=== PATIENT | male | born 1965 | race Caucasian/White ===

== ENCOUNTER 2018-08-25 09:53 | Emergency (ER) | payer OTHER, SELFPAY ==
[~2018-08-25] VITALS: Ht 167.6 cm; Wt 58.1 kg
[~2018-08-25 09:53] MED LIST: Acetaminophen-1 EAC1 PO; BACL10 PO; BUTALB-ACETAMI1 EACH PO; CRUTCH3 USE; DICL25ER PO; DULO30 PO; Diclofenac Pota50 MG PO; FLUC150A PO; GABA300 PO; HYDACE5325 PO; HYDR25SUP PR; IBUP400 PO; Ibuprofen Ib200 MG PO; KETO15TC TOP; LEVFLO500 PO; LORA1 PO; LOSA50 PO; LOSARTAN POTAS100 MG PO; METR500 PO; Milk Thistle175 M1 PO; Multivitamin1 EAC1 PO; NAPR500 PO; Naprosyn500 MG PO; Norco 10-325 T1 EACH PO; OMEP20ER PO; OMEP40CA12 PO; OXYC5 PO; PANT20 PO; PANT40 PO; PARO10 PO; Percocet 5-3251 EACH PO; Prednisone20 MG PO; Prozac20 MG PO; SULTRIDS PO; TIZANIDINE HCL2 MG PO; TOPI25 PO; TRAZ100 PO; Zofran Odt8 MG SL
[2018-08-25 11:13] LABS: Anion Gap 6 mmol/L (6-16); Blood Urea Nitrogen 20 mg/dL (8-24); Bun/Creatinine Ratio 25.5 (12.0-20.0); CO2, Blood 28 mmol/L (21-32); Calcium, Blood 8.8 mg/dL (8.5-10.1); Chloride, Blood 103 mmol/L (98-108); Creatinine, Blood 0.78 mg/dL (0.60-1.20); Glomerular Filtration Rate >60 (60-); Glucose, Blood 113 mg/dL (70-99); Magnesium, Blood 2.3 mg/dL (1.6-2.4); Potassium, Blood 3.9 mmol/L (3.5-5.5); Sodium, Blood 137 mmol/L (136-145)
[2018-08-25 11:34] LABS: Influenza A Negative (NEGATIVE); Influenza B Negative (NEGATIVE)
[2018-08-25] MEDS ORDERED: Neurontin 300300 MG PO (12:43)
== END 2018-08-25 13:00 | disposition home or self-care (01) ==
LOC: ER 09:53
PROVIDERS: Physician Assistant
DX: R25.2 Cramp and spasm (principal); Z91.030 Bee allergy status; Z91.038 Other insect allergy status; Z88.8 Allergy status to other drugs, medicaments and biological substances; Z79.899 Other long term (current) drug therapy; F17.210 Nicotine dependence, cigarettes, uncomplicated
CPT/HCPCS: 80048; 83735; 87804; 96374; 99283-25; J1885; J7120

== ENCOUNTER 2018-12-24 05:41 | Day surgery (SDC) | payer OTHER ==
[~2018-12-24] VITALS: Ht 142.2 cm; Wt 65.9 kg
[~2018-12-24 05:41] MED LIST changes: +B-121000 MC2 PO; +CLOP75; +EPIPEN0.3 MG/0.3 INJ; +FOLBIC RF TABL1 EACH; +Neurontin 300300 MG PO; +OXYC10ER PO
--- NOTE | 2018-12-24 09:12 | NUR ---
PT TO RECOVERY ROOM APPROX 10 MINUTES AGO WITH NOTED SMALL HEMATOMA TO GROIN, APPROX SIZE OF [place]. PRESSURE HELD WITH RESOLUTION AND THEN RETURN OF HEMATOMA. TECH BACK IN AT THIS TIME TO CONTINUE TO HOLD PRESSURE. MD IN TO SEE PATIENT PREVIOUSLY. LEFT LEG CMS INTACT. PPP.
--- NOTE | 2018-12-24 09:25 | NUR ---
GROIN NOW REMAINS SOFT, NO HEMATOMA FELT. CONTINUE CLOSE MONITORING. PT LETHARGIC.
--- NOTE | 2018-12-24 11:15 | NUR ---
PT CONTINUES TO SLEEP IF LEFT UNDISTURBED. LEFT GROIN REMAINS SOFT. LEGS PWD. CAP REFILL BRISK.
--- NOTE | 2018-12-24 12:31 | NUR ---
APPROX 30 MINUTES AGO PT UP TO BATHROOM (OK PER ORDERS) WITH CG,RN. PT FOUND TO HAVE GOLF BALL SIZE HEMATOMA TO LEFT GROIN SITE AFTER AMBULATION. CG HEL PRESSURE TO SITE UNTIL HEMATOMA REDUCED AND SOFT. PT CURRENTLY RESTING IN BED IN LOW BRAR'S POSITION. AWAITING FEEDBACK FROM .
--- NOTE | 2018-12-24 13:45 | NUR ---
SUMMARY: MONITORED GROIN CLOSELY - NO FURTHER SIGNS OF BLEEDING. PT AMBULATED IN ROOM, GROIN REMAINED SOFT. LEGS PWD. PT DRESSED SELF AT BEDSIDE. GROIN REMAINED SOFT. CMS INTACT. PPP. REVIEWED DISCHARGE INSTRUCTIONS WITH PATIENT WHO VERBALIZED UNDERSTANDING OF ALL INSTRUCTIONS GIVEN. PT AGREES WITH PLAN TO DC HOME. IV D/C TIP INTACT. DC HOME VIA WHEELCHAIR WITH FAMILY TO DRIVE HIM. NO FURTHER ISSUES WITH GROIN UPON DISCHARGE. REMAINS STABLE.
[2018-12-25] MEDS ORDERED: Percocet 5-3251 EACH PO (14:07)
== END 2018-12-24 13:40 | disposition home or self-care (01) ==
LOC: MHTC 05:41
DX: I73.9 Peripheral vascular disease, unspecified (principal); Z88.8 Allergy status to other drugs, medicaments and biological substances; Z91.030 Bee allergy status; Z79.899 Other long term (current) drug therapy
CPT/HCPCS: 99152; 99153; C1714; C1725; C1760; C1769; C1884; C1887; C1894; C2623; J1644; J2250; J3010; J7030; Q9967

== ENCOUNTER 2018-12-25 11:17 | Emergency (ER) | payer OTHER ==
[~2018-12-25] VITALS: Ht 167.6 cm; Wt 65.8 kg
[2018-12-25 12:40] LABS: BASOPHILS ABSOLUTE AUTO 0.08 K/mm3 (0.00-0.23); BASOPHILS PERCENT AUTO 1 % (0-2); EOSINOPHILS ABSOLUTE AUTO 0.35 K/mm3 (0.00-0.68); EOSINOPHILS PERCENT AUTO 3 % (0-6); Hematocrit 42.6 % (37.0-53.0); Hemoglobin 14.2 g/dL (13.5-17.5); IMMATURE GRAN ABSOLUTE AUTO 0.04 K/mm3 (0.00-0.10); IMMATURE GRAN PERCENT AUTO 0 % (0-1); LYMPHOCYTES ABSOLUTE AUTO 3.45 K/mm3 (0.84-5.20); LYMPHOCYTES PERCENT AUTO 33 % (21-46); MONOCYTES ABSOLUTE AUTO 0.99 K/mm3 (0.16-1.47); MONOCYTES PERCENT AUTO 9 % (4-13); Mean Corpuscular HGB 32.5 pg (26.0-34.0); Mean Corpuscular HGB Conc 33.3 g/dL (31.5-36.5); Mean Corpuscular Volume 98 fL (80-100); Mean Platelet Volume 10.3 fL (9.1-12.4); NEUTROPHILS ABSOLUTE AUTO 5.62 K/mm3 (1.96-9.15); NEUTROPHILS PERCENT AUTO 53 % (41-73); Platelet Count 220 K/mm3 (150-400); RDW Coefficient Variation 13.1 % (11.7-14.2); RDW Standard Deviation 46.8 fL (35.1-46.3); Red Blood Cell Count 4.37 M/mm3 (4.30-5.90); White Blood Cell Count 10.53 K/mm3 (4.00-11.30)
[2018-12-25 13:06] LABS: Alanine Aminotransfer (ALT/SGP 20 U/L (12-78); Albumin, Blood 3.5 g/dL (3.4-5.0); Albumin/Globulin Ratio 0.9 (0.8-1.8); Alk Phos 55 U/L (50-136); Anion Gap 6 mmol/L (6-16); Aspartate Aminotrans (AST/SGOT 13 U/L (12-37); Bilirubin, Total 0.4 mg/dL (0.1-1.0); Blood Urea Nitrogen 14 mg/dL (8-24); CO2, Blood 27 mmol/L (21-32); Calcium, Blood 8.4 mg/dL (8.5-10.1); Chloride, Blood 107 mmol/L (98-108); Creatinine, Blood 0.78 mg/dL (0.60-1.20); Globulin, Blood 3.8 g/dL (2.2-4.0); Glomerular Filtration Rate >60 (60-); Glucose, Blood 77 mg/dL (70-99); Potassium, Blood 3.7 mmol/L (3.5-5.5); Sodium, Blood 140 mmol/L (136-145); Total Protein, Blood 7.3 g/dL (6.4-8.2)
[2018-12-25 13:28] LABS: Source, Urine Clean Catch
[2018-12-25 13:32] LABS: Appearance, Urine Clear (Clear); Bilirubin, Urine Neg (Neg); Blood, Urine Neg (Neg); Color, Urine Yellow (P-Yellow); Glucose Qualitative, Urine Neg (Neg); Ketones, Urine Neg (Neg); Leukocyte Esterase, Urine Neg (Neg); Nitrite, Urine Neg (Neg); Protein, Urine Neg (Neg); Urobilinogen, Urine NORM (Normal)
[2018-12-25] MEDS ORDERED: Percocet 5-3251 EACH PO (14:07)
== END 2018-12-25 14:19 | disposition home or self-care (01) ==
LOC: ER 11:17
PROVIDERS: Emergency Medicine
DX: R10.9 Unspecified abdominal pain (principal); M79.604 Pain in right leg; F17.210 Nicotine dependence, cigarettes, uncomplicated
CPT/HCPCS: 36415; 74177; 80053; 81003; 85025; 96361; 96374-59; 99284-25; J3010; J7030; Q9967

== ENCOUNTER 2019-04-07 19:15 | Emergency (ER) | payer OTHER ==
[~2019-04-07] VITALS: Ht 167.6 cm; Wt 64.4 kg
== END 2019-04-07 20:37 | disposition home or self-care (01) ==
LOC: ER 19:15
DX: T63.441A Toxic effect of venom of bees, accidental (unintentional), initial encounter (principal); Z91.030 Bee allergy status; Z88.8 Allergy status to other drugs, medicaments and biological substances; Z87.891 Personal history of nicotine dependence
CPT/HCPCS: 99281; J1100

== ENCOUNTER 2019-05-08 14:37 | Emergency (ER) | payer OTHER ==
[~2019-05-08] VITALS: Ht 167.6 cm; Wt 65.8 kg
[2019-05-08 15:46] LABS: Source, Urine Clean Catch
[2019-05-08 15:48] LABS: BASOPHILS ABSOLUTE AUTO 0.02 K/mm3 (0.00-0.23); BASOPHILS PERCENT AUTO 0 % (0-2); EOSINOPHILS PERCENT AUTO 2 % (0-6); Hematocrit 47.5 % (37.0-53.0); Hemoglobin 16.1 g/dL (13.5-17.5); IMMATURE GRAN ABSOLUTE AUTO 0.01 K/mm3 (0.00-0.10); IMMATURE GRAN PERCENT AUTO 0 % (0-1); LYMPHOCYTES PERCENT AUTO 39 % (21-46); MONOCYTES PERCENT AUTO 8 % (4-13); Mean Corpuscular HGB 31.9 pg (26.0-34.0); Mean Corpuscular HGB Conc 33.9 g/dL (31.5-36.5); Mean Corpuscular Volume 94 fL (80-100); Mean Platelet Volume 10.7 fL (9.1-12.4); NEUTROPHILS ABSOLUTE AUTO 3.18 K/mm3 (1.96-9.15); NEUTROPHILS PERCENT AUTO 51 % (41-73); Platelet Count 155 K/mm3 (150-400); RDW Coefficient Variation 12.7 % (11.7-14.2); RDW Standard Deviation 44.4 fL (35.1-46.3); Red Blood Cell Count 5.04 M/mm3 (4.30-5.90); White Blood Cell Count 6.21 K/mm3 (4.00-11.30)
[2019-05-08 15:51] LABS: Bilirubin, Urine Neg (Neg); Blood, Urine Neg (Neg); Glucose Qualitative, Urine Neg (Neg); Ketones, Urine Neg (Neg); Leukocyte Esterase, Urine Neg (Neg); Nitrite, Urine Neg (Neg); Protein, Urine Neg (Neg); Urobilinogen, Urine NORM (Normal)
[2019-05-08 15:58] LABS: Appearance, Urine Clear (Clear); Color, Urine Yellow (P-Yellow)
[2019-05-08 16:21] LABS: Alanine Aminotransfer (ALT/SGP 34 U/L (12-78); Albumin, Blood 3.7 g/dL (3.4-5.0); Albumin/Globulin Ratio 0.9 (0.8-1.8); Alk Phos 59 U/L (50-136); Anion Gap 6 mmol/L (6-16); Aspartate Aminotrans (AST/SGOT 28 U/L (12-37); Bilirubin, Total 0.3 mg/dL (0.1-1.0); Blood Urea Nitrogen 17 mg/dL (8-24); Bun/Creatinine Ratio 23.2 (12.0-20.0); CO2, Blood 28 mmol/L (21-32); Calcium, Blood 8.7 mg/dL (8.5-10.1); Chloride, Blood 105 mmol/L (98-108); Creatinine, Blood 0.73 mg/dL (0.60-1.20); Globulin, Blood 4.1 g/dL (2.2-4.0); Glomerular Filtration Rate >60 (60-); Glucose, Blood 158 mg/dL (70-99); Potassium, Blood 3.8 mmol/L (3.5-5.5); Sodium, Blood 139 mmol/L (136-145); Total Protein, Blood 7.8 g/dL (6.4-8.2)
[2019-05-08 16:27] LABS: Troponin I <0.015 ng/mL (0.000-0.040)
[2019-05-08] MEDS ORDERED: Zithromax250 MG PO (16:49)
== END 2019-05-08 16:54 | disposition home or self-care (01) ==
LOC: ER 14:37
PROVIDERS: Physician Assistant
DX: J18.9 Pneumonia, unspecified organism (principal); G89.29 Other chronic pain; M54.9 Dorsalgia, unspecified; I51.7 Cardiomegaly; F17.210 Nicotine dependence, cigarettes, uncomplicated; Z91.030 Bee allergy status; Z88.8 Allergy status to other drugs, medicaments and biological substances; Z86.19 Personal history of other infectious and parasitic diseases
CPT/HCPCS: 36415; 71046; 80053; 81003; 83690; 83880; 84484; 85025; 93005; 93010; 96365; 99284-25; J0456; J0696; J7030; J7050

== ENCOUNTER 2019-05-26 19:53 | Emergency (ER) | payer OTHER ==
[~2019-05-26] VITALS: Ht 167.6 cm; Wt 65.8 kg
[~2019-05-26 19:53] MED LIST changes: +Zithromax250 MG PO
[2019-05-26] MEDS ORDERED: LOSA25 PO (20:02)
[2019-05-26] MEDS ORDERED: [UNRECOGNIZED DRUG - OTHER] (20:03)
[2019-05-26] MEDS ORDERED: TRAZ100 PO (20:03)
[2019-05-26 20:43] LABS: BASOPHILS ABSOLUTE AUTO 0.05 K/mm3 (0.00-0.23); BASOPHILS PERCENT AUTO 0 % (0-2); EOSINOPHILS ABSOLUTE AUTO 0.14 K/mm3 (0.00-0.68); EOSINOPHILS PERCENT AUTO 1 % (0-6); Hematocrit 45.9 % (37.0-53.0); Hemoglobin 15.7 g/dL (13.5-17.5); IMMATURE GRAN ABSOLUTE AUTO 0.03 K/mm3 (0.00-0.10); IMMATURE GRAN PERCENT AUTO 0 % (0-1); LYMPHOCYTES ABSOLUTE AUTO 3.98 K/mm3 (0.84-5.20); LYMPHOCYTES PERCENT AUTO 32 % (21-46); MONOCYTES ABSOLUTE AUTO 0.76 K/mm3 (0.16-1.47); MONOCYTES PERCENT AUTO 6 % (4-13); Mean Corpuscular HGB 32.3 pg (26.0-34.0); Mean Corpuscular HGB Conc 34.2 g/dL (31.5-36.5); Mean Corpuscular Volume 94 fL (80-100); Mean Platelet Volume 10.6 fL (9.1-12.4); NEUTROPHILS ABSOLUTE AUTO 7.58 K/mm3 (1.96-9.15); NEUTROPHILS PERCENT AUTO 61 % (41-73); Platelet Count 201 K/mm3 (150-400); RDW Coefficient Variation 12.6 % (11.7-14.2); RDW Standard Deviation 43.8 fL (35.1-46.3); Red Blood Cell Count 4.86 M/mm3 (4.30-5.90); White Blood Cell Count 12.54 K/mm3 (4.00-11.30)
[2019-05-26 21:06] LABS: Alanine Aminotransfer (ALT/SGP 29 U/L (12-78); Albumin/Globulin Ratio 1.1 (0.8-1.8); Alk Phos 56 U/L (50-136); Anion Gap 3 mmol/L (6-16); Aspartate Aminotrans (AST/SGOT 23 U/L (12-37); Bilirubin, Total 0.5 mg/dL (0.1-1.0); Blood Urea Nitrogen 15 mg/dL (8-24); Bun/Creatinine Ratio 20.2 (12.0-20.0); CO2, Blood 29 mmol/L (21-32); Calcium, Blood 8.9 mg/dL (8.5-10.1); Chloride, Blood 106 mmol/L (98-108); Creatinine, Blood 0.74 mg/dL (0.60-1.20); Globulin, Blood 3.6 g/dL (2.2-4.0); Glomerular Filtration Rate >60 (60-); Glucose, Blood 83 mg/dL (70-99); Potassium, Blood 4.2 mmol/L (3.5-5.5); Sodium, Blood 138 mmol/L (136-145); Total Protein, Blood 7.6 g/dL (6.4-8.2); Troponin I <0.015 ng/mL (0.000-0.040)
== END 2019-05-26 23:34 | disposition home or self-care (01) ==
LOC: ER 19:53
PROVIDERS: Physician Assistant
DX: R07.9 Chest pain, unspecified (principal); F17.210 Nicotine dependence, cigarettes, uncomplicated; Z91.030 Bee allergy status; Z88.8 Allergy status to other drugs, medicaments and biological substances; Z79.899 Other long term (current) drug therapy
CPT/HCPCS: 36415; 71046; 80053; 84484; 85025; 93005; 93010; 96374; 99285-25; J1885

== ENCOUNTER 2020-02-17 06:41 | Day surgery (SDC) | payer OTHER ==
[~2020-02-17] VITALS: Ht 167.6 cm; Wt 65.0 kg
[~2020-02-17 06:41] MED LIST changes: +CLOP75 PO; +EPIPEN0.3 MG/0.3 IM; +LOSA25 PO; +TOPI25C PO; +[UNRECOGNIZED DRUG - OTHER]
--- NOTE | 2020-02-17 11:47 | NUR ---
PT R FEMORAL ARTERY ACCESS HAS NO SIGN OF BLEEDING, OOZING OR HEMATOMA. PT AOX4. DENIES PAIN. VSS. PLAN TO DC PT AT 1215. WILL CONTINUE TO MONITOR
--- NOTE | 2020-02-17 12:12 | NUR ---
PT AMBULATED TO RESTROOM AND DRESSED SELF WITH NO COMPLICATIONS. PT DENIES ANY PAIN. NO OOZING, BLEEDING OR HEMATOMA NOTED AT SITE. VSS. PT AOX4 AND IS ABLE TO SPEAK IN FULL SENTENCES AND RECALL INFORMATION. IV DCD WITH CATH INTACT. PT STATES HIS UNDERSTANDING OF SITE CARE AND DISCHARGE INSTRUCTIONS. PT TAKEN VIA WHEELCHAIR TO EXIT WHERE WAS WAITING WITH VEHICLE.
== END 2020-02-17 12:15 | disposition home or self-care (01) ==
LOC: MHTC 06:41
DX: I70.212 Atherosclerosis of native arteries of extremities with intermittent claudication, left leg (principal); Z88.8 Allergy status to other drugs, medicaments and biological substances; Z91.030 Bee allergy status; Z91.038 Other insect allergy status
CPT/HCPCS: 37224; 37228; 75716; 75774; 85347; 99152; 99153; C1725; C1757; C1760; C1769; C1887; C1894; J1644; J2250; J3010; J7030; Q9967

== ENCOUNTER 2020-03-16 06:15 | Day surgery (SDC) | payer OTHER ==
[~2020-03-16] VITALS: Ht 167.6 cm; Wt 63.0 kg
[~2020-03-16 06:15] MED LIST changes: +CENTRUM SILVER1 EAC2 PO
--- NOTE | 2020-03-16 10:50 | NUR ---
PT TO RECOVERY POST PROCEDURE. PT IS AWAKE AND ORIENTED, REPORTS L GROIN DISCOMFORT 10/10, ACHEY IN CHARACTER. MONITOR SB 50'S, B/P 141/70, AFEBRILE, SPO2 97% RA. L GROIN SLIGHTLY SWOLLEEN, BUT SOFT WITHOUT EVIDENCE OF HEMATOMA, TEGADERM DRSG INTACT; BLE 2+ PULSES. DR ARREDONDO HERE TO EVALUATE PT, ORDERS RECEIVED.
--- NOTE | 2020-03-16 11:00 | NUR ---
PT RECEIVED 25 MCG IV FENTANYL FOR L GROIN DISCOMFORT-ASSESSMENT REMAINS UNCHANGED.
--- NOTE | 2020-03-16 11:35 | NUR ---
PT REPORTS HE IS COMFORTABLE AFTER IV FENTANYL, L GROIN DISCOMFORT 11/03.
[2020-03-16] MEDS ORDERED: CILO100 PO (11:45)
--- NOTE | 2020-03-16 12:05 | NUR ---
PT EATING LUNCH WITHOUT ISSUE, AT BEDSIDE ATTENTIVE.
--- NOTE | 2020-03-16 13:20 | NUR ---
PT GILSON RAISED WITHOUT ISSUE, Tyra MERCER REMIANS UNCHANGED. PT AMB IN RECOVERY ROOM AND NOYOLA WITHOUT ISSUE, SITE UNCHANGED.
--- NOTE | 2020-03-16 13:27 | NUR ---
PT DRESSED SELF WITHOUT ISSUE, SITE UNCHANGED; IV REMOVED-CANNULA INTACT. PT AND RECEIVED DISCHARGE INSTRUCTIONS, MED LIST AND AFTER CARE INSTURCTIONS; VERBALIZED GOOD UNDERSTANDING. PT LEFT FACILITY VIA W/C, CONDITION STABLE.
== END 2020-03-16 13:27 | disposition home or self-care (01) ==
LOC: MHTC 06:15
DX: I70.213 Atherosclerosis of native arteries of extremities with intermittent claudication, bilateral legs (principal); I10 Essential (primary) hypertension; F32.9 Major depressive disorder, single episode, unspecified; G89.29 Other chronic pain; M54.5 Low back pain; Z87.891 Personal history of nicotine dependence; Z95.828 Presence of other vascular implants and grafts; Z88.8 Allergy status to other drugs, medicaments and biological substances; Z91.030 Bee allergy status; Z79.899 Other long term (current) drug therapy
CPT/HCPCS: 37230; 37232; 75716; 75774; 99152; 99153; A9270-GY; C1725; C1757; C1760; C1769; C1874; C1887; C1894; C2623; C9764; J1644; J2250; J3010; J7030; Q9967

== ENCOUNTER 2020-07-20 10:16 | Emergency (ER) | payer OTHER ==
[~2020-07-20] VITALS: Ht 167.6 cm; Wt 61.2 kg
[~2020-07-20 10:16] MED LIST changes: +CILO100 PO
== END 2020-07-20 15:13 | disposition left against medical advice (07) ==
LOC: ER 10:16
DX: M54.5 Low back pain (principal); Z53.21 Procedure and treatment not carried out due to patient leaving prior to being seen by health care provider; Z79.02 Long term (current) use of antithrombotics/antiplatelets; Z79.899 Other long term (current) drug therapy
CPT/HCPCS: 99282

== ENCOUNTER 2020-08-03 12:03 | Emergency (ER) | payer OTHER ==
[~2020-08-03] VITALS: Ht 167.6 cm; Wt 61.2 kg
== END 2020-08-03 13:45 | disposition home or self-care (01) ==
LOC: ER 12:03
DX: S39.012A Strain of muscle, fascia and tendon of lower back, initial encounter (principal); S70.02XA Contusion of left hip, initial encounter; Z79.02 Long term (current) use of antithrombotics/antiplatelets; Z79.899 Other long term (current) drug therapy; Z91.030 Bee allergy status; Z88.8 Allergy status to other drugs, medicaments and biological substances; Y04.8XXA Assault by other bodily force, initial encounter
CPT/HCPCS: 72100; 73502; 99283-25

== ENCOUNTER 2020-10-21 06:47 | Day surgery (SDC) | payer OTHER, SELFPAY ==
[~2020-10-21] VITALS: Ht 167.6 cm; Wt 56.0 kg
[~2020-10-21 06:47] MED LIST changes: +ATOR20 PO
[2020-10-21] MEDS ORDERED: CATAPRES0.2 M1 (07:08)
--- NOTE | 2020-10-21 07:40 | NUR ---
10/21/20 0740 Marisa Thomas 1 try right hanf valve 2 try right upper arm valve
== END 2020-10-21 09:20 | disposition home or self-care (01) ==
LOC: ORSCSDS 06:47
PROVIDERS: Internal Medicine Gastroenterology
PROC: 0DBL8ZX Excision of Transverse Colon, Via Natural or Artificial Opening Endoscopic, Diagnostic (ICD-10-PCS; principal; 2020-10-21 08:00)
PROC: 0DBE8ZX Excision of Large Intestine, Via Natural or Artificial Opening Endoscopic, Diagnostic (ICD-10-PCS; principal; 2020-10-21 08:00)
PROC: 0DB68ZX Excision of Stomach, Via Natural or Artificial Opening Endoscopic, Diagnostic (ICD-10-PCS; principal; 2020-10-21 08:00)
PROC: 0DB98ZX Excision of Duodenum, Via Natural or Artificial Opening Endoscopic, Diagnostic (ICD-10-PCS; principal; 2020-10-21 08:00)
DX: R19.7 Diarrhea, unspecified (principal); K52.832 Lymphocytic colitis; D12.3 Benign neoplasm of transverse colon; K64.4 Residual hemorrhoidal skin tags; I10 Essential (primary) hypertension; K74.60 Unspecified cirrhosis of liver; F17.210 Nicotine dependence, cigarettes, uncomplicated; J44.9 Chronic obstructive pulmonary disease, unspecified
CPT/HCPCS: 88305; 88313; 88342; J0330; J0461; J2405; J2704; J7120

== ENCOUNTER 2020-10-27 05:57 | Day surgery (SDC) | payer OTHER, SELFPAY ==
[~2020-10-27] VITALS: Ht 167.6 cm; Wt 57.0 kg
[~2020-10-27 05:57] MED LIST changes: +CATAPRES0.2 M1
[2020-10-27 06:37] LABS: BASOPHILS ABSOLUTE AUTO 0.08 K/mm3 (0.00-0.23); BASOPHILS PERCENT AUTO 1 % (0-2); EOSINOPHILS ABSOLUTE AUTO 0.12 K/mm3 (0.00-0.68); EOSINOPHILS PERCENT AUTO 1 % (0-6); Hematocrit 41.9 % (37.0-53.0); Hemoglobin 14.1 g/dL (13.5-17.5); IMMATURE GRAN ABSOLUTE AUTO 0.04 K/mm3 (0.00-0.10); IMMATURE GRAN PERCENT AUTO 0 % (0-1); LYMPHOCYTES ABSOLUTE AUTO 2.48 K/mm3 (0.84-5.20); LYMPHOCYTES PERCENT AUTO 19 % (21-46); MONOCYTES ABSOLUTE AUTO 1.07 K/mm3 (0.16-1.47); MONOCYTES PERCENT AUTO 8 % (4-13); Mean Corpuscular HGB 32.2 pg (26.0-34.0); Mean Corpuscular HGB Conc 33.7 g/dL (31.5-36.5); Mean Corpuscular Volume 96 fL (80-100); NEUTROPHILS ABSOLUTE AUTO 9.17 K/mm3 (1.96-9.15); NEUTROPHILS PERCENT AUTO 71 % (41-73); Platelet Count 223 K/mm3 (150-400); RDW Coefficient Variation 13.6 % (11.7-14.2); RDW Standard Deviation 48.3 fL (35.1-46.3); Red Blood Cell Count 4.38 M/mm3 (4.30-5.90); White Blood Cell Count 12.96 K/mm3 (4.00-11.30)
[2020-10-27 06:50] LABS: Anion Gap 3 mmol/L (6-16); Blood Urea Nitrogen 20 mg/dL (8-24); Bun/Creatinine Ratio 24.3 (12.0-20.0); CO2, Blood 27 mmol/L (21-32); Calcium, Blood 8.7 mg/dL (8.5-10.1); Chloride, Blood 109 mmol/L (98-108); Creatinine, Blood 0.82 mg/dL (0.60-1.20); Glomerular Filtration Rate >60 (60-); Glucose, Blood 97 mg/dL (70-99); Potassium, Blood 4.1 mmol/L (3.5-5.5); Sodium, Blood 139 mmol/L (136-145)
--- NOTE | 2020-10-27 11:14 | NUR ---
PT DRESSED, IV DC'D INTACT, PT CHOOSES TO DC AND AMB OUT ON OWN WITH PRESENT AND DRIVING PT HOME. PT IS STABLE ON FEET, R GROIN SITE STABLE
== END 2020-10-27 11:29 | disposition home or self-care (01) ==
LOC: MHTC 05:57
PROVIDERS: Radiology Diagnostic Radiology
DX: I70.213 Atherosclerosis of native arteries of extremities with intermittent claudication, bilateral legs (principal); I10 Essential (primary) hypertension; E78.5 Hyperlipidemia, unspecified; K21.9 Gastro-esophageal reflux disease without esophagitis; K92.1 Melena; R63.4 Abnormal weight loss; M54.5 Low back pain; G89.29 Other chronic pain; Z87.891 Personal history of nicotine dependence; Z79.02 Long term (current) use of antithrombotics/antiplatelets; Z68.21 Body mass index [BMI] 21.0-21.9, adult
CPT/HCPCS: 37220; 37222; 75716; 75774; 80048; 85025; 99152; 99153; A9270; C1725; C1760; C1769; C1887; C1894; J1644; J2250; J3010; J7030; Q9967

== ENCOUNTER 2020-11-18 10:36 | Day surgery (SDC) | payer OTHER, SELFPAY ==
[~2020-11-18] VITALS: Ht 167.6 cm; Wt 57.0 kg
[2020-11-18] MEDS ORDERED: CLON.1 PO (12:26)
[2020-11-18] MEDS ORDERED: LOSA50 PO (12:28)
[2020-11-18] MEDS ORDERED: Norco 5-325 Ta1 EACH PO (16:34)
--- NOTE | 2020-11-18 17:31 | NUR ---
PT GETTING DRESSED PER SELF. GROIN SITE STABLE
--- NOTE | 2020-11-18 17:42 | NUR ---
PT DRESSED, GROIN SITE STABLE. DISCHARGE GONE OVER WITH PT, VERBALIZES UNDERSTANDING. PT TO PRIVATE VEHICLE PER W/C WITH ONE STAFF.
== END 2020-11-18 23:32 | disposition home or self-care (01) ==
LOC: MHTC 10:36
DX: I70.213 Atherosclerosis of native arteries of extremities with intermittent claudication, bilateral legs (principal); I10 Essential (primary) hypertension; E78.5 Hyperlipidemia, unspecified; K21.9 Gastro-esophageal reflux disease without esophagitis; Z88.8 Allergy status to other drugs, medicaments and biological substances; Z86.19 Personal history of other infectious and parasitic diseases; Z86.14 Personal history of Methicillin resistant Staphylococcus aureus infection; Z87.891 Personal history of nicotine dependence; Z91.030 Bee allergy status; Z79.02 Long term (current) use of antithrombotics/antiplatelets; R63.4 Abnormal weight loss; Z68.21 Body mass index [BMI] 21.0-21.9, adult
CPT/HCPCS: 37228; 75716; 75774; 76937; 85347; 93005; 93010; 99152; 99153; C1725; C1757; C1760; C1769; C1887; C1894; C9772; J1644; J2250; J3010; J7030; J7050; Q9967

== ENCOUNTER 2021-04-27 22:28 | Observation (INO) | payer OTHER ==
[~2021-04-27] VITALS: Ht 167.6 cm; Wt 58.4 kg
[~2021-04-27 22:28] MED LIST changes: +CLON.1 PO; +Norco 5-325 Ta1 EACH PO
[2021-04-27] MEDS ORDERED: PLAVIX75 MG PO (23:16)
[2021-04-27 23:17] LABS: BASOPHILS ABSOLUTE AUTO 0.06 K/mm3 (0.00-0.23); BASOPHILS PERCENT AUTO 0 % (0-2); EOSINOPHILS ABSOLUTE AUTO 0.05 K/mm3 (0.00-0.68); EOSINOPHILS PERCENT AUTO 0 % (0-6); Hematocrit 31.2 % (37.0-53.0); Hemoglobin 10.5 g/dL (13.5-17.5); IMMATURE GRAN ABSOLUTE AUTO 0.15 K/mm3 (0.00-0.10); IMMATURE GRAN PERCENT AUTO 1 % (0-1); LYMPHOCYTES ABSOLUTE AUTO 3.01 K/mm3 (0.84-5.20); LYMPHOCYTES PERCENT AUTO 14 % (21-46); MONOCYTES ABSOLUTE AUTO 1.37 K/mm3 (0.16-1.47); MONOCYTES PERCENT AUTO 7 % (4-13); Mean Corpuscular HGB 31.7 pg (26.0-34.0); Mean Corpuscular HGB Conc 33.7 g/dL (31.5-36.5); Mean Corpuscular Volume 94 fL (80-100); Mean Platelet Volume 10.6 fL (9.1-12.4); NEUTROPHILS ABSOLUTE AUTO 16.38 K/mm3 (1.96-9.15); NEUTROPHILS PERCENT AUTO 78 % (41-73); Platelet Count 278 K/mm3 (150-400); RDW Coefficient Variation 13.9 % (11.7-14.2); RDW Standard Deviation 48.8 fL (35.1-46.3); Red Blood Cell Count 3.31 M/mm3 (4.30-5.90); White Blood Cell Count 21.02 K/mm3 (4.00-11.30)
[2021-04-27 23:32] LABS: Alanine Aminotransfer (ALT/SGP 29 U/L (12-78); Albumin, Blood 3.6 g/dL (3.4-5.0); Albumin/Globulin Ratio 1.2 (0.8-1.8); Alk Phos 38 U/L (50-136); Anion Gap 8 mmol/L (6-16); Aspartate Aminotrans (AST/SGOT 22 U/L (12-37); Bilirubin, Total 0.1 mg/dL (0.1-1.0); Blood Urea Nitrogen 68 mg/dL (8-24); CO2, Blood 22 mmol/L (21-32); Calcium, Blood 8.6 mg/dL (8.5-10.1); Chloride, Blood 107 mmol/L (98-108); Creatinine, Blood 0.87 mg/dL (0.60-1.20); Globulin, Blood 3.1 g/dL (2.2-4.0); Glomerular Filtration Rate >60 (60-); Glucose, Blood 119 mg/dL (70-99); Potassium, Blood 4.1 mmol/L (3.5-5.5); Sodium, Blood 137 mmol/L (136-145); Total Protein, Blood 6.7 g/dL (6.4-8.2)
[2021-04-27 23:34] LABS: International Normalized Ratio 1.04; Prothrombin Time Results 11.2 Sec (9.7-11.5)
[2021-04-28 02:50] LABS: SARS-Cov-2 (COVID-19) PCR, MMC NEGATIVE (NEGATIVE)
[2021-04-28 05:18] LABS: Hematocrit 29.4 % (37.0-53.0); Mean Corpuscular HGB 31.8 pg (26.0-34.0); Mean Corpuscular Volume 94 fL (80-100); Mean Platelet Volume 10.7 fL (9.1-12.4); Platelet Count 248 K/mm3 (150-400); RDW Coefficient Variation 13.9 % (11.7-14.2); RDW Standard Deviation 47.3 fL (35.1-46.3); Red Blood Cell Count 3.14 M/mm3 (4.30-5.90)
[2021-04-28 05:45] LABS: Alanine Aminotransfer (ALT/SGP 27 U/L (12-78); Albumin, Blood 3.5 g/dL (3.4-5.0); Albumin/Globulin Ratio 1.2 (0.8-1.8); Alk Phos 35 U/L (50-136); Anion Gap 8 mmol/L (6-16); Aspartate Aminotrans (AST/SGOT 20 U/L (12-37); Bilirubin, Total 0.2 mg/dL (0.1-1.0); Blood Urea Nitrogen 46 mg/dL (8-24); Bun/Creatinine Ratio 59.6 (12.0-20.0); CO2, Blood 22 mmol/L (21-32); Calcium, Blood 8.1 mg/dL (8.5-10.1); Chloride, Blood 109 mmol/L (98-108); Creatinine, Blood 0.77 mg/dL (0.60-1.20); Globulin, Blood 2.8 g/dL (2.2-4.0); Glomerular Filtration Rate >60 (60-); Glucose, Blood 97 mg/dL (70-99); Potassium, Blood 3.9 mmol/L (3.5-5.5); Sodium, Blood 139 mmol/L (136-145); Total Protein, Blood 6.3 g/dL (6.4-8.2)
--- NOTE | 2021-04-28 06:42 | NUR ---
New admission. plan for scope today. alert and oriented x4. pain to right hip from fall at home. xray of hip negative. ice pack and tylenol given for the pain. no bruising noted on skin anywhere.
[2021-04-28 07:12] LABS: BAND PERCENT MAN 2 % (0-8); BASOPHILS PERCENT MAN 0 % (0-2); EOSINOPHILS PERCENT MAN 0 % (0-6); LYMPHOCYTES ABSOLUTE MAN 3.82 K/mm3 (0.84-5.20); LYMPHOCYTES PERCENT MAN 25 % (21-46); MONOCYTES ABSOLUTE MAN 1.07 K/mm3 (0.16-1.47); MONOCYTES PERCENT MAN 7 % (4-13); SEG NEUTROPHILS PERCENT MAN 66 % (41-73); TOTAL CELLS COUNTED 100
--- NOTE | 2021-04-28 08:08 | NUR ---
PHYSICIAN ORDER Patient requesting nicotine patch "or else I'll go crazy". Received T.O. from Dr. Morales for 14mg topical nicotine patch daily. EMAR updated
[2021-04-28 12:18] LABS: Hematocrit 27.1 % (37.0-53.0); Hemoglobin 9.1 g/dL (13.5-17.5)
--- NOTE | 2021-04-28 13:35 | NUR ---
04/28/21 1335 Ksenia Amaya History, Chart, Medications and Allergies reviewed before start of procedure. Patient confirms NPO status and agrees with scheduled surgery. 3-LEAD EKG REVIEWED WITH PHYSICIAN PRIOR TO START OF PROCEDURE. MONITOR INTACT WITH CONTINUOUS PULSE OXIMETRY AND INTERMITTENT BP. PATIENT DETERMINED TO BE ASA APPROPRIATE FOR PROPOFOL SEDATION PRIOR TO START OF PROCEDURE BY .
[2021-04-28] MEDS ORDERED: Nicoderm Cq1 EAC1 TOP (15:47)
[2021-04-28] MEDS ORDERED: TRAM50 PO (15:48)
--- NOTE | 2021-04-28 16:17 | NUR ---
PT DISCHARGED PERSONAL BELONGINGS WITH PT. PT VERB UNDERSTANDING OF DC INSTRUCTIONS, DIET, FOLLOW UP. NEW RX FAXED TO [facility] IN [place].
--- NOTE | 2021-04-29 11:53 | NUR ---
Introduction: PT requested visit from the Spiritual Care Team. Assessment: PT had been discharged, unable to assess. Intervention: None Outcome: None Follow-up: As needed or requested.
== END 2021-04-28 16:50 | disposition home or self-care (01) ==
LOC: ER 22:28 → MEDS 22:29 → ER 04-28 02:40 → MEDS 04-28 03:51
PROVIDERS: Emergency Medicine; Family Medicine; Internal Medicine Gastroenterology; Student in an Organized Health Care Education/Training Program; ADMIT Internal Medicine
DX: K25.4 Chronic or unspecified gastric ulcer with hemorrhage (principal); D62 Acute posthemorrhagic anemia; R55 Syncope and collapse; I11.9 Hypertensive heart disease without heart failure; F17.210 Nicotine dependence, cigarettes, uncomplicated; G89.29 Other chronic pain; M25.551 Pain in right hip; M54.41 Lumbago with sciatica, right side; I73.9 Peripheral vascular disease, unspecified; D72.829 Elevated white blood cell count, unspecified; K21.9 Gastro-esophageal reflux disease without esophagitis; F10.11 Alcohol abuse, in remission; K74.60 Unspecified cirrhosis of liver; K52.9 Noninfective gastroenteritis and colitis, unspecified; R10.84 Generalized abdominal pain; R11.0 Nausea; K64.8 Other hemorrhoids; F12.90 Cannabis use, unspecified, uncomplicated; E78.5 Hyperlipidemia, unspecified; R56.9 Unspecified convulsions; Z20.822 Contact with and (suspected) exposure to COVID-19; Z79.1 Long term (current) use of non-steroidal anti-inflammatories (NSAID); Z79.02 Long term (current) use of antithrombotics/antiplatelets; Z95.820 Peripheral vascular angioplasty status with implants and grafts; Z86.010 Personal history of colon polyps; Z88.8 Allergy status to other drugs, medicaments and biological substances; Z91.038 Other insect allergy status; Z87.39 Personal history of other diseases of the musculoskeletal system and connective tissue; Z86.19 Personal history of other infectious and parasitic diseases
CPT/HCPCS: 36415; 70450; 73502; 80053; 85014; 85018; 85025; 85610; 86850; 86900; 86901; 93005; 93010; 96374; 96375; 99285-25; A9270; C9113; J2270; J2704; J7120; U0004

== ENCOUNTER 2021-10-08 03:54 | Day surgery (SDC) | payer OTHER ==
[~2021-10-08 03:54] MED LIST changes: +Nicoderm Cq1 EAC1 TOP; +PLAVIX75 MG PO; +TRAM50 PO
[2021-10-08] MEDS ORDERED: CEFTRIAXONE2 G1 IV (09:01)
[2021-10-08] MEDS ORDERED: Percocet 5-3251 EACH PO (10:21)
[2021-10-08] MEDS ORDERED: Norco 5-325 Ta1 EACH PO (10:22)
== END 2021-10-08 10:30 | disposition home or self-care (01) ==
LOC: ATC 03:54
DX: M46.36 Infection of intervertebral disc (pyogenic), lumbar region (principal); B95.61 Methicillin susceptible Staphylococcus aureus infection as the cause of diseases classified elsewhere; I10 Essential (primary) hypertension; F17.210 Nicotine dependence, cigarettes, uncomplicated; Z88.8 Allergy status to other drugs, medicaments and biological substances
CPT/HCPCS: J0696

== ENCOUNTER 2021-10-09 03:33 | Day surgery (SDC) | payer OTHER ==
[~2021-10-09 03:33] MED LIST changes: +CEFTRIAXONE2 G1 IV
== END 2021-10-09 10:12 | disposition home or self-care (01) ==
LOC: ATC 03:33
DX: M46.36 Infection of intervertebral disc (pyogenic), lumbar region (principal); B95.61 Methicillin susceptible Staphylococcus aureus infection as the cause of diseases classified elsewhere
CPT/HCPCS: J0696

== ENCOUNTER 2021-10-10 01:49 | Day surgery (SDC) | payer OTHER | END 2021-10-10 23:08 | disposition home or self-care (01) | LOC: WOUND 01:49 | DX: T81.42XA Infection following a procedure, deep incisional surgical site, initial encounter (principal); S31.000A Unspecified open wound of lower back and pelvis without penetration into retroperitoneum, initial encounter; L76.82 Other postprocedural complications of skin and subcutaneous tissue; I10 Essential (primary) hypertension; I73.9 Peripheral vascular disease, unspecified; F17.210 Nicotine dependence, cigarettes, uncomplicated; Z79.02 Long term (current) use of antithrombotics/antiplatelets; Z88.8 Allergy status to other drugs, medicaments and biological substances | CPT/HCPCS: A9270 ==

== ENCOUNTER 2021-10-10 01:55 | Day surgery (SDC) | payer OTHER ==
[2021-10-10 11:08] LABS: BASOPHILS PERCENT AUTO 1 % (0-2); EOSINOPHILS ABSOLUTE AUTO 0.21 K/mm3 (0.00-0.68); EOSINOPHILS PERCENT AUTO 2 % (0-6); Hematocrit 34.7 % (37.0-53.0); Hemoglobin 9.8 g/dL (13.5-17.5); IMMATURE GRAN ABSOLUTE AUTO 0.07 K/mm3 (0.00-0.10); IMMATURE GRAN PERCENT AUTO 1 % (0-1); LYMPHOCYTES ABSOLUTE AUTO 2.19 K/mm3 (0.84-5.20); LYMPHOCYTES PERCENT AUTO 22 % (21-46); MONOCYTES ABSOLUTE AUTO 0.74 K/mm3 (0.16-1.47); MONOCYTES PERCENT AUTO 7 % (4-13); Mean Corpuscular HGB 20.8 pg (26.0-34.0); Mean Corpuscular HGB Conc 28.2 g/dL (31.5-36.5); Mean Corpuscular Volume 74 fL (80-100); Mean Platelet Volume 9.9 fL (9.1-12.4); NEUTROPHILS PERCENT AUTO 67 % (41-73); Platelet Count 457 K/mm3 (150-400); RDW Coefficient Variation 22.5 % (11.7-14.2); Red Blood Cell Count 4.71 M/mm3 (4.30-5.90); White Blood Cell Count 10.11 K/mm3 (4.00-11.30)
[2021-10-10 12:00] LABS: Alanine Aminotransfer (ALT/SGP 24 U/L (12-78); Albumin, Blood 3.3 g/dL (3.4-5.0); Albumin/Globulin Ratio 0.8 (0.8-1.8); Alk Phos 71 U/L (50-136); Anion Gap 6 mmol/L (6-16); Aspartate Aminotrans (AST/SGOT 17 U/L (12-37); Bilirubin, Total 0.2 mg/dL (0.1-1.0); Blood Urea Nitrogen 15 mg/dL (8-24); CO2, Blood 25 mmol/L (21-32); Calcium, Blood 8.7 mg/dL (8.5-10.1); Chloride, Blood 107 mmol/L (98-108); Creatinine, Blood 0.68 mg/dL (0.60-1.20); Globulin, Blood 4.2 g/dL (2.2-4.0); Glomerular Filtration Rate >60 (60-); Glucose, Blood 107 mg/dL (70-99); Potassium, Blood 4.3 mmol/L (3.5-5.5); Sodium, Blood 138 mmol/L (136-145); Total Protein, Blood 7.5 g/dL (6.4-8.2)
== END 2021-10-10 10:26 | disposition home or self-care (01) ==
LOC: ATC 01:55
PROVIDERS: Specialist
DX: M46.36 Infection of intervertebral disc (pyogenic), lumbar region (principal); B95.61 Methicillin susceptible Staphylococcus aureus infection as the cause of diseases classified elsewhere
CPT/HCPCS: 80053; 85025; 85651; 86140; J0696

== ENCOUNTER 2021-10-11 03:58 | Day surgery (SDC) | payer OTHER | END 2021-10-11 11:37 | disposition home or self-care (01) | LOC: ATC 03:58 | DX: M46.36 Infection of intervertebral disc (pyogenic), lumbar region (principal) | CPT/HCPCS: J0696 ==

== ENCOUNTER 2021-10-12 00:04 | Day surgery (SDC) | payer OTHER | END 2021-10-12 15:10 | disposition home or self-care (01) | LOC: ATC 00:04 | DX: M46.36 Infection of intervertebral disc (pyogenic), lumbar region (principal); B95.62 Methicillin resistant Staphylococcus aureus infection as the cause of diseases classified elsewhere | CPT/HCPCS: J0696 ==

== ENCOUNTER 2021-10-12 00:14 | Day surgery (SDC) | payer OTHER | END 2021-10-12 23:17 | disposition home or self-care (01) | LOC: WOUND 00:14 | DX: T81.42XA Infection following a procedure, deep incisional surgical site, initial encounter (principal); B99.9 Unspecified infectious disease; S31.000A Unspecified open wound of lower back and pelvis without penetration into retroperitoneum, initial encounter; L76.82 Other postprocedural complications of skin and subcutaneous tissue; Y83.8 Other surgical procedures as the cause of abnormal reaction of the patient, or of later complication, without mention of misadventure at the time of the procedure ==

== ENCOUNTER 2021-10-13 01:45 | Day surgery (SDC) | payer OTHER | END 2021-10-13 15:10 | disposition home or self-care (01) | LOC: ATC 01:45 | DX: M46.36 Infection of intervertebral disc (pyogenic), lumbar region (principal); B95.61 Methicillin susceptible Staphylococcus aureus infection as the cause of diseases classified elsewhere | CPT/HCPCS: 96374; J0696 ==

== ENCOUNTER 2021-10-14 03:06 | Day surgery (SDC) | payer OTHER ==
[2022-02-21] MEDS ORDERED: EPIPEN0.3 MG/0.3 IM (13:44)
== END 2021-10-14 22:59 | disposition home or self-care (01) ==
LOC: WOUND 03:06
DX: S31.000A Unspecified open wound of lower back and pelvis without penetration into retroperitoneum, initial encounter (principal); T81.42XA Infection following a procedure, deep incisional surgical site, initial encounter; Z48.01 Encounter for change or removal of surgical wound dressing; L76.82 Other postprocedural complications of skin and subcutaneous tissue

== ENCOUNTER 2021-10-14 03:08 | Day surgery (SDC) | payer OTHER | END 2021-10-14 15:10 | disposition home or self-care (01) | LOC: ATC 03:08 | DX: M46.36 Infection of intervertebral disc (pyogenic), lumbar region (principal); B95.62 Methicillin resistant Staphylococcus aureus infection as the cause of diseases classified elsewhere; I10 Essential (primary) hypertension; F17.200 Nicotine dependence, unspecified, uncomplicated; Z88.8 Allergy status to other drugs, medicaments and biological substances | CPT/HCPCS: J0696 ==

== ENCOUNTER 2021-10-16 00:25 | Day surgery (SDC) | payer OTHER ==
--- NOTE | 2021-10-15 14:35 | NUR ---
ATTEMPTED TO FIX WOUND-VAC X2 WHERE THEY PUT THE DRAIN ON HIS VAC WAS OVER HIS INCISION AND WAS PAINFUL. CHANGED DRESSING X2 WITH A HUGE LEAK NOTED BOTH TIMES. DECIDED TO DO JUST A DRESSING WITH 4X4'S AND WIDE TAPE. SENT GAUZE AND WIDE TAPE IF THEY NEED TO CHANGE DRESSING AT HOME. WILL REPLACE IN AM AT HIS NEXT APPT.
--- NOTE | 2021-10-16 12:35 | NUR ---
SKIN WAS CLEANED WITH WOUND EMS MANAGER AND SKIN PROTECTANT. DRAPE WAS APPLIED AROUND WOUND EDGES. BLACK FOAM WAS CUT THE SIZE OF WOUND. REPLACED THE REPLACED THE CANNISTER. TURNED ON WOUND-VAC AND HAD TO PUT MORE DRAPE ON SITE FOR LEAK ALARM. PT TOLERATED PROCEDURE WELL. PT TO SEE WOUND CARE CLINIC TOMORROW.
== END 2021-10-16 11:27 | disposition home or self-care (01) ==
LOC: ATC 00:25
DX: M46.36 Infection of intervertebral disc (pyogenic), lumbar region (principal); B95.61 Methicillin susceptible Staphylococcus aureus infection as the cause of diseases classified elsewhere
CPT/HCPCS: J0696

== ENCOUNTER 2021-10-17 01:20 | Day surgery (SDC) | payer OTHER | END 2021-10-17 23:21 | disposition home or self-care (01) | LOC: WOUND 01:20 | DX: T81.42XA Infection following a procedure, deep incisional surgical site, initial encounter (principal); B99.9 Unspecified infectious disease; S31.000A Unspecified open wound of lower back and pelvis without penetration into retroperitoneum, initial encounter; L76.82 Other postprocedural complications of skin and subcutaneous tissue; I10 Essential (primary) hypertension; I73.9 Peripheral vascular disease, unspecified; X58.XXXA Exposure to other specified factors, initial encounter; Y83.8 Other surgical procedures as the cause of abnormal reaction of the patient, or of later complication, without mention of misadventure at the time of the procedure ==

== ENCOUNTER 2021-10-17 01:48 | Day surgery (SDC) | payer OTHER | END 2021-10-17 15:00 | disposition home or self-care (01) | LOC: ATC 01:48 | DX: M46.36 Infection of intervertebral disc (pyogenic), lumbar region (principal); B95.61 Methicillin susceptible Staphylococcus aureus infection as the cause of diseases classified elsewhere | CPT/HCPCS: J0696 ==

== ENCOUNTER 2021-10-18 03:34 | Day surgery (SDC) | payer OTHER ==
[2021-10-18 18:03] LABS: Hematocrit 34.5 % (37.0-53.0); Hemoglobin 10.1 g/dL (13.5-17.5); Mean Corpuscular HGB 21.2 pg (26.0-34.0); Mean Corpuscular HGB Conc 29.3 g/dL (31.5-36.5); Mean Corpuscular Volume 73 fL (80-100); Mean Platelet Volume 9.6 fL (9.1-12.4); Platelet Count 459 K/mm3 (150-400); RDW Coefficient Variation 22.1 % (11.7-14.2); RDW Standard Deviation 56.8 fL (35.1-46.3); Red Blood Cell Count 4.76 M/mm3 (4.30-5.90); White Blood Cell Count 7.15 K/mm3 (4.00-11.30)
[2021-10-18 18:53] LABS: BAND PERCENT MAN 1 % (0-8); BASOPHILS ABSOLUTE MAN 0.14 K/mm3 (0.00-0.23); BASOPHILS PERCENT MAN 2 % (0-2); EOSINOPHILS ABSOLUTE MAN 0.21 K/mm3 (0.00-0.68); EOSINOPHILS PERCENT MAN 3 % (0-6); LYMPHOCYTES % ATYPICAL MANUAL 1 % (0-0); LYMPHOCYTES ABSOLUTE MAN 3.21 K/mm3 (0.84-5.20); LYMPHOCYTES PERCENT MAN 44 % (21-46); METAMYELOCYTE ABSOLUTE MAN 0.07 K/mm3 (0.00-0.00); METAMYELOCYTE PERCENT MAN 1 % (0-0); MONOCYTES ABSOLUTE MAN 0.42 K/mm3 (0.16-1.47); MONOCYTES PERCENT MAN 6 % (4-13); NEUTROPHILS ABSOLUTE MAN 3.07 K/mm3 (1.96-9.15); SEG NEUTROPHILS PERCENT MAN 42 % (41-73); TOTAL CELLS COUNTED 100
[2021-10-18 18:54] LABS: C-REACTIVE PROTEIN, EXT RANGE 0.309 mg/dL (0.000-0.300)
[2021-10-18 18:59] LABS: Alanine Aminotransfer (ALT/SGP 21 U/L (12-78); Albumin, Blood 3.4 g/dL (3.4-5.0); Albumin/Globulin Ratio 0.8 (0.8-1.8); Alk Phos 64 U/L (50-136); Anion Gap 5 mmol/L (6-16); Aspartate Aminotrans (AST/SGOT 14 U/L (12-37); Bilirubin, Total 0.1 mg/dL (0.1-1.0); Blood Urea Nitrogen 20 mg/dL (8-24); Bun/Creatinine Ratio 25.3 (12.0-20.0); CO2, Blood 25 mmol/L (21-32); Calcium, Blood 8.8 mg/dL (8.5-10.1); Chloride, Blood 110 mmol/L (98-108); Creatinine, Blood 0.79 mg/dL (0.60-1.20); Glomerular Filtration Rate >60 (60-); Glucose, Blood 111 mg/dL (70-99); Potassium, Blood 4.4 mmol/L (3.5-5.5); Sodium, Blood 140 mmol/L (136-145); Total Protein, Blood 7.4 g/dL (6.4-8.2)
== END 2021-10-18 16:30 | disposition home or self-care (01) ==
LOC: ATC 03:34
PROVIDERS: Specialist
DX: M46.36 Infection of intervertebral disc (pyogenic), lumbar region (principal); B95.61 Methicillin susceptible Staphylococcus aureus infection as the cause of diseases classified elsewhere
CPT/HCPCS: 80053; 85025; 85651; 86140; J0696

== ENCOUNTER 2021-10-19 00:09 | Day surgery (SDC) | payer OTHER | END 2021-10-19 16:38 | disposition home or self-care (01) | LOC: ATC 00:09 | DX: M46.36 Infection of intervertebral disc (pyogenic), lumbar region (principal); B95.61 Methicillin susceptible Staphylococcus aureus infection as the cause of diseases classified elsewhere | CPT/HCPCS: J0696 ==

== ENCOUNTER 2021-10-21 02:30 | Day surgery (SDC) | payer OTHER | END 2021-10-21 23:52 | disposition home or self-care (01) | LOC: WOUND 02:30 | DX: S31.000A Unspecified open wound of lower back and pelvis without penetration into retroperitoneum, initial encounter (principal) ==

== ENCOUNTER 2021-10-21 02:37 | Day surgery (SDC) | payer OTHER | END 2021-10-21 15:07 | disposition home or self-care (01) | LOC: ATC 02:37 | DX: T81.42XA Infection following a procedure, deep incisional surgical site, initial encounter (principal); M46.36 Infection of intervertebral disc (pyogenic), lumbar region; B95.61 Methicillin susceptible Staphylococcus aureus infection as the cause of diseases classified elsewhere; I10 Essential (primary) hypertension; E78.5 Hyperlipidemia, unspecified; I73.9 Peripheral vascular disease, unspecified; F17.210 Nicotine dependence, cigarettes, uncomplicated; Y83.9 Surgical procedure, unspecified as the cause of abnormal reaction of the patient, or of later complication, without mention of misadventure at the time of the procedure | CPT/HCPCS: J0696 ==

== ENCOUNTER 2021-10-22 01:28 | Day surgery (SDC) | payer OTHER | END 2021-10-22 11:12 | disposition home or self-care (01) | LOC: ATC 01:28 | DX: M46.36 Infection of intervertebral disc (pyogenic), lumbar region (principal); B95.61 Methicillin susceptible Staphylococcus aureus infection as the cause of diseases classified elsewhere | CPT/HCPCS: J0696 ==

== ENCOUNTER 2021-10-23 00:24 | Day surgery (SDC) | payer OTHER | END 2021-10-23 11:04 | disposition home or self-care (01) | LOC: ATC 00:24 | DX: M46.36 Infection of intervertebral disc (pyogenic), lumbar region (principal); B95.61 Methicillin susceptible Staphylococcus aureus infection as the cause of diseases classified elsewhere | CPT/HCPCS: J0696 ==

== ENCOUNTER 2021-10-24 03:11 | Day surgery (SDC) | payer OTHER | END 2021-10-24 23:28 | disposition home or self-care (01) | LOC: WOUND 03:11 | DX: T81.42XA Infection following a procedure, deep incisional surgical site, initial encounter (principal); S31.000A Unspecified open wound of lower back and pelvis without penetration into retroperitoneum, initial encounter; L76.82 Other postprocedural complications of skin and subcutaneous tissue; Z48.01 Encounter for change or removal of surgical wound dressing; I10 Essential (primary) hypertension; I73.9 Peripheral vascular disease, unspecified; Y83.9 Surgical procedure, unspecified as the cause of abnormal reaction of the patient, or of later complication, without mention of misadventure at the time of the procedure | CPT/HCPCS: A9270 ==

== ENCOUNTER 2021-10-24 03:17 | Day surgery (SDC) | payer OTHER ==
[2021-10-24 13:59] LABS: BASOPHILS ABSOLUTE AUTO 0.06 K/mm3 (0.00-0.23); BASOPHILS PERCENT AUTO 1 % (0-2); EOSINOPHILS PERCENT AUTO 2 % (0-6); Hematocrit 35.5 % (37.0-53.0); Hemoglobin 10.3 g/dL (13.5-17.5); IMMATURE GRAN ABSOLUTE AUTO 0.03 K/mm3 (0.00-0.10); IMMATURE GRAN PERCENT AUTO 0 % (0-1); LYMPHOCYTES ABSOLUTE AUTO 2.52 K/mm3 (0.84-5.20); LYMPHOCYTES PERCENT AUTO 27 % (21-46); MONOCYTES ABSOLUTE AUTO 0.74 K/mm3 (0.16-1.47); MONOCYTES PERCENT AUTO 8 % (4-13); Mean Corpuscular HGB 21.1 pg (26.0-34.0); Mean Corpuscular Volume 73 fL (80-100); Mean Platelet Volume 10.2 fL (9.1-12.4); NEUTROPHILS ABSOLUTE AUTO 5.83 K/mm3 (1.96-9.15); NEUTROPHILS PERCENT AUTO 62 % (41-73); Platelet Count 297 K/mm3 (150-400); RDW Coefficient Variation 21.2 % (11.7-14.2); Red Blood Cell Count 4.87 M/mm3 (4.30-5.90); White Blood Cell Count 9.38 K/mm3 (4.00-11.30)
[2021-10-24 14:17] LABS: Alanine Aminotransfer (ALT/SGP 26 U/L (12-78); Albumin, Blood 3.4 g/dL (3.4-5.0); Albumin/Globulin Ratio 0.8 (0.8-1.8); Alk Phos 73 U/L (50-136); Anion Gap 7 mmol/L (6-16); Aspartate Aminotrans (AST/SGOT 15 U/L (12-37); Bilirubin, Total 0.2 mg/dL (0.1-1.0); Blood Urea Nitrogen 20 mg/dL (8-24); Bun/Creatinine Ratio 20.9 (12.0-20.0); CO2, Blood 25 mmol/L (21-32); Calcium, Blood 8.7 mg/dL (8.5-10.1); Chloride, Blood 105 mmol/L (98-108); Creatinine, Blood 0.96 mg/dL (0.60-1.20); Globulin, Blood 4.1 g/dL (2.2-4.0); Glomerular Filtration Rate >60 (60-); Glucose, Blood 130 mg/dL (70-99); Sodium, Blood 137 mmol/L (136-145); Total Protein, Blood 7.5 g/dL (6.4-8.2)
== END 2021-10-24 13:50 | disposition home or self-care (01) ==
LOC: ATC 03:17
PROVIDERS: Specialist
DX: M46.36 Infection of intervertebral disc (pyogenic), lumbar region (principal); B95.61 Methicillin susceptible Staphylococcus aureus infection as the cause of diseases classified elsewhere
CPT/HCPCS: 80053; 85025; 85651; J0696

== ENCOUNTER 2021-10-25 00:24 | Day surgery (SDC) | payer OTHER | END 2021-10-25 15:51 | disposition home or self-care (01) | LOC: ATC 00:24 | DX: M46.36 Infection of intervertebral disc (pyogenic), lumbar region (principal); B95.62 Methicillin resistant Staphylococcus aureus infection as the cause of diseases classified elsewhere | CPT/HCPCS: J0696 ==

== ENCOUNTER 2021-10-26 01:18 | Day surgery (SDC) | payer OTHER | END 2021-10-26 23:13 | disposition home or self-care (01) | LOC: WOUND 01:18 | DX: Z48.01 Encounter for change or removal of surgical wound dressing (principal); T81.42XA Infection following a procedure, deep incisional surgical site, initial encounter; S31.000A Unspecified open wound of lower back and pelvis without penetration into retroperitoneum, initial encounter; L76.82 Other postprocedural complications of skin and subcutaneous tissue ==

== ENCOUNTER 2021-10-26 01:35 | Day surgery (SDC) | payer OTHER | END 2021-10-26 15:55 | disposition home or self-care (01) | LOC: ATC 01:35 | DX: M46.36 Infection of intervertebral disc (pyogenic), lumbar region (principal); B95.61 Methicillin susceptible Staphylococcus aureus infection as the cause of diseases classified elsewhere | CPT/HCPCS: J0696 ==

== ENCOUNTER 2021-10-28 00:50 | Day surgery (SDC) | payer OTHER | END 2021-10-28 22:50 | disposition home or self-care (01) | LOC: WOUND 00:50 | DX: S31.000A Unspecified open wound of lower back and pelvis without penetration into retroperitoneum, initial encounter (principal) ==

== ENCOUNTER 2021-10-28 01:22 | Day surgery (SDC) | payer OTHER | END 2021-10-28 15:42 | disposition home or self-care (01) | LOC: ATC 01:22 | DX: T81.42XA Infection following a procedure, deep incisional surgical site, initial encounter (principal); M46.36 Infection of intervertebral disc (pyogenic), lumbar region; B95.61 Methicillin susceptible Staphylococcus aureus infection as the cause of diseases classified elsewhere; I10 Essential (primary) hypertension; E78.5 Hyperlipidemia, unspecified; I73.9 Peripheral vascular disease, unspecified; F17.210 Nicotine dependence, cigarettes, uncomplicated; Z88.8 Allergy status to other drugs, medicaments and biological substances; Y83.8 Other surgical procedures as the cause of abnormal reaction of the patient, or of later complication, without mention of misadventure at the time of the procedure | CPT/HCPCS: J0696 ==

== ENCOUNTER 2021-10-29 01:46 | Day surgery (SDC) | payer OTHER | END 2021-10-29 11:07 | disposition home or self-care (01) | LOC: ATC 01:46 | DX: M46.36 Infection of intervertebral disc (pyogenic), lumbar region (principal); B95.61 Methicillin susceptible Staphylococcus aureus infection as the cause of diseases classified elsewhere | CPT/HCPCS: J0696 ==

== ENCOUNTER 2021-10-30 00:44 | Day surgery (SDC) | payer OTHER | END 2021-10-30 11:05 | disposition home or self-care (01) | LOC: ATC 00:44 | DX: T81.42XA Infection following a procedure, deep incisional surgical site, initial encounter (principal); M46.36 Infection of intervertebral disc (pyogenic), lumbar region; B95.61 Methicillin susceptible Staphylococcus aureus infection as the cause of diseases classified elsewhere; I10 Essential (primary) hypertension; E78.5 Hyperlipidemia, unspecified; I73.9 Peripheral vascular disease, unspecified; Z20.822 Contact with and (suspected) exposure to COVID-19 | CPT/HCPCS: J0696 ==

== ENCOUNTER 2021-10-31 05:55 | Day surgery (SDC) | payer OTHER | END 2021-10-31 23:26 | disposition home or self-care (01) | LOC: WOUND 05:55 | DX: S31.000A Unspecified open wound of lower back and pelvis without penetration into retroperitoneum, initial encounter (principal); T81.42XA Infection following a procedure, deep incisional surgical site, initial encounter; Y83.8 Other surgical procedures as the cause of abnormal reaction of the patient, or of later complication, without mention of misadventure at the time of the procedure; Z48.01 Encounter for change or removal of surgical wound dressing; L76.82 Other postprocedural complications of skin and subcutaneous tissue; L02.212 Cutaneous abscess of back [any part, except buttock and flank]; I10 Essential (primary) hypertension | CPT/HCPCS: G0463 ==

== ENCOUNTER 2021-10-31 06:00 | Day surgery (SDC) | payer OTHER | END 2021-10-31 15:07 | disposition home or self-care (01) | LOC: ATC 06:00 | DX: M46.36 Infection of intervertebral disc (pyogenic), lumbar region (principal); B95.61 Methicillin susceptible Staphylococcus aureus infection as the cause of diseases classified elsewhere; I10 Essential (primary) hypertension; E78.5 Hyperlipidemia, unspecified; F17.210 Nicotine dependence, cigarettes, uncomplicated | CPT/HCPCS: J0696 ==

== ENCOUNTER 2021-11-01 05:31 | Day surgery (SDC) | payer OTHER ==
[2021-11-01 15:20] LABS: BASOPHILS ABSOLUTE AUTO 0.09 K/mm3 (0.00-0.23); BASOPHILS PERCENT AUTO 1 % (0-2); EOSINOPHILS ABSOLUTE AUTO 0.23 K/mm3 (0.00-0.68); EOSINOPHILS PERCENT AUTO 3 % (0-6); Hematocrit 35.2 % (37.0-53.0); Hemoglobin 10.1 g/dL (13.5-17.5); IMMATURE GRAN ABSOLUTE AUTO 0.02 K/mm3 (0.00-0.10); IMMATURE GRAN PERCENT AUTO 0 % (0-1); LYMPHOCYTES ABSOLUTE AUTO 2.68 K/mm3 (0.84-5.20); LYMPHOCYTES PERCENT AUTO 29 % (21-46); MONOCYTES ABSOLUTE AUTO 0.79 K/mm3 (0.16-1.47); MONOCYTES PERCENT AUTO 9 % (4-13); Mean Corpuscular HGB Conc 28.7 g/dL (31.5-36.5); Mean Corpuscular Volume 73 fL (80-100); Mean Platelet Volume 10.4 fL (9.1-12.4); NEUTROPHILS ABSOLUTE AUTO 5.34 K/mm3 (1.96-9.15); NEUTROPHILS PERCENT AUTO 58 % (41-73); Platelet Count 277 K/mm3 (150-400); RDW Standard Deviation 54.8 fL (35.1-46.3); Red Blood Cell Count 4.81 M/mm3 (4.30-5.90); White Blood Cell Count 9.15 K/mm3 (4.00-11.30)
--- NOTE | 2021-11-01 15:30 | NUR ---
LABS DRAWN FROM PICC LINE. 7CC OF BLOOD DISCARDED AND 10CC FOR LABS.
[2021-11-01 15:40] LABS: Alanine Aminotransfer (ALT/SGP 30 U/L (12-78); Albumin, Blood 3.6 g/dL (3.4-5.0); Albumin/Globulin Ratio 0.9 (0.8-1.8); Alk Phos 68 U/L (50-136); Anion Gap 6 mmol/L (6-16); Aspartate Aminotrans (AST/SGOT 19 U/L (12-37); Bilirubin, Total 0.1 mg/dL (0.1-1.0); Blood Urea Nitrogen 17 mg/dL (8-24); Bun/Creatinine Ratio 25.8 (12.0-20.0); CO2, Blood 27 mmol/L (21-32); Calcium, Blood 8.5 mg/dL (8.5-10.1); Chloride, Blood 108 mmol/L (98-108); Creatinine, Blood 0.66 mg/dL (0.60-1.20); Globulin, Blood 3.9 g/dL (2.2-4.0); Glomerular Filtration Rate >60 (60-); Glucose, Blood 92 mg/dL (70-99); Potassium, Blood 3.9 mmol/L (3.5-5.5); Sodium, Blood 141 mmol/L (136-145); Total Protein, Blood 7.5 g/dL (6.4-8.2)
== END 2021-11-01 23:52 | disposition home or self-care (01) ==
LOC: ATC 05:31
PROVIDERS: Specialist
DX: M46.36 Infection of intervertebral disc (pyogenic), lumbar region (principal); B95.61 Methicillin susceptible Staphylococcus aureus infection as the cause of diseases classified elsewhere
CPT/HCPCS: 80053; 85025; 85651; J0696

== ENCOUNTER 2021-11-03 00:16 | Day surgery (SDC) | payer OTHER | END 2021-11-03 14:42 | disposition home or self-care (01) | LOC: ATC 00:16 | DX: M46.36 Infection of intervertebral disc (pyogenic), lumbar region (principal); B95.61 Methicillin susceptible Staphylococcus aureus infection as the cause of diseases classified elsewhere | CPT/HCPCS: 96374; J0696 ==

== ENCOUNTER 2021-11-04 00:48 | Day surgery (SDC) | payer OTHER | END 2021-11-04 14:42 | disposition home or self-care (01) | LOC: ATC 00:48 | DX: M46.36 Infection of intervertebral disc (pyogenic), lumbar region (principal); B95.61 Methicillin susceptible Staphylococcus aureus infection as the cause of diseases classified elsewhere; I10 Essential (primary) hypertension; E78.5 Hyperlipidemia, unspecified | CPT/HCPCS: J0696 ==

== ENCOUNTER 2021-11-05 10:33 | Day surgery (SDC) | payer OTHER | END 2021-11-05 11:15 | disposition home or self-care (01) | LOC: ATC 10:33 | DX: M46.36 Infection of intervertebral disc (pyogenic), lumbar region (principal); B95.61 Methicillin susceptible Staphylococcus aureus infection as the cause of diseases classified elsewhere | CPT/HCPCS: J0696 ==

== ENCOUNTER 2021-11-06 00:30 | Day surgery (SDC) | payer OTHER | END 2021-11-06 11:08 | disposition home or self-care (01) | LOC: ATC 00:30 | DX: M46.36 Infection of intervertebral disc (pyogenic), lumbar region (principal); B95.61 Methicillin susceptible Staphylococcus aureus infection as the cause of diseases classified elsewhere | CPT/HCPCS: J0696 ==

== ENCOUNTER 2021-11-07 02:08 | Day surgery (SDC) | payer OTHER | END 2021-11-07 15:00 | disposition home or self-care (01) | LOC: ATC 02:08 | DX: M46.36 Infection of intervertebral disc (pyogenic), lumbar region (principal); B95.61 Methicillin susceptible Staphylococcus aureus infection as the cause of diseases classified elsewhere; F17.210 Nicotine dependence, cigarettes, uncomplicated | CPT/HCPCS: J0696 ==

== ENCOUNTER 2021-11-07 02:29 | Day surgery (SDC) | payer OTHER | END 2021-11-07 22:39 | disposition home or self-care (01) | LOC: WOUND | DX: S31.000A Unspecified open wound of lower back and pelvis without penetration into retroperitoneum, initial encounter (principal); T81.42XA Infection following a procedure, deep incisional surgical site, initial encounter; L76.82 Other postprocedural complications of skin and subcutaneous tissue; I10 Essential (primary) hypertension; I73.9 Peripheral vascular disease, unspecified; Z79.02 Long term (current) use of antithrombotics/antiplatelets | CPT/HCPCS: A9270; G0463 ==

== ENCOUNTER 2021-11-08 04:46 | Day surgery (SDC) | payer OTHER ==
[2021-11-08 15:09] LABS: BASOPHILS ABSOLUTE AUTO 0.08 K/mm3 (0.00-0.23); BASOPHILS PERCENT AUTO 1 % (0-2); EOSINOPHILS ABSOLUTE AUTO 0.28 K/mm3 (0.00-0.68); EOSINOPHILS PERCENT AUTO 3 % (0-6); Hematocrit 35.1 % (37.0-53.0); Hemoglobin 10.5 g/dL (13.5-17.5); Mean Corpuscular HGB 21.8 pg (26.0-34.0); Mean Corpuscular HGB Conc 29.9 g/dL (31.5-36.5); Mean Corpuscular Volume 73 fL (80-100); Platelet Count 324 K/mm3 (150-400); RDW Coefficient Variation 20.4 % (11.7-14.2); RDW Standard Deviation 53.7 fL (35.1-46.3); Red Blood Cell Count 4.82 M/mm3 (4.30-5.90); White Blood Cell Count 9.31 K/mm3 (4.00-11.30)
[2021-11-08 15:14] LABS: IMMATURE GRAN ABSOLUTE AUTO 0.02 K/mm3 (0.00-0.10); IMMATURE GRAN PERCENT AUTO 0 % (0-1); LYMPHOCYTES ABSOLUTE AUTO 2.65 K/mm3 (0.84-5.20); LYMPHOCYTES PERCENT AUTO 29 % (21-46); MONOCYTES ABSOLUTE AUTO 0.83 K/mm3 (0.16-1.47); MONOCYTES PERCENT AUTO 9 % (4-13); NEUTROPHILS ABSOLUTE AUTO 5.45 K/mm3 (1.96-9.15); NEUTROPHILS PERCENT AUTO 59 % (41-73)
[2021-11-08 15:31] LABS: C-REACTIVE PROTEIN, EXT RANGE 0.498 mg/dL (0.000-0.300)
[2021-11-08 15:45] LABS: Alanine Aminotransfer (ALT/SGP 23 U/L (12-78); Albumin, Blood 3.7 g/dL (3.4-5.0); Alk Phos 71 U/L (50-136); Anion Gap 6 mmol/L (6-16); Aspartate Aminotrans (AST/SGOT 16 U/L (12-37); Bilirubin, Total 0.2 mg/dL (0.1-1.0); Blood Urea Nitrogen 16 mg/dL (8-24); Bun/Creatinine Ratio 21.8 (12.0-20.0); CO2, Blood 24 mmol/L (21-32); Calcium, Blood 8.6 mg/dL (8.5-10.1); Chloride, Blood 110 mmol/L (98-108); Creatinine, Blood 0.73 mg/dL (0.60-1.20); Globulin, Blood 3.8 g/dL (2.2-4.0); Glomerular Filtration Rate >60 (60-); Glucose, Blood 109 mg/dL (70-99); Potassium, Blood 3.7 mmol/L (3.5-5.5); Sodium, Blood 140 mmol/L (136-145); Total Protein, Blood 7.5 g/dL (6.4-8.2)
[2022-02-21] MEDS ORDERED: EPIPEN0.3 MG/0.3 IM (13:44)
== END 2021-11-08 15:15 | disposition home or self-care (01) ==
LOC: ATC 04:46
PROVIDERS: Specialist
DX: M46.36 Infection of intervertebral disc (pyogenic), lumbar region (principal); B95.61 Methicillin susceptible Staphylococcus aureus infection as the cause of diseases classified elsewhere
CPT/HCPCS: 80053; 85025; 85651; 86140; 96374; J0696

== ENCOUNTER 2021-11-09 01:16 | Day surgery (SDC) | payer OTHER ==
[2022-02-21] MEDS ORDERED: EPIPEN0.3 MG/0.3 IM (13:44)
== END 2021-11-09 15:52 | disposition home or self-care (01) ==
LOC: ATC 01:16
DX: M46.36 Infection of intervertebral disc (pyogenic), lumbar region (principal); B95.61 Methicillin susceptible Staphylococcus aureus infection as the cause of diseases classified elsewhere
CPT/HCPCS: 96374; J0696

== ENCOUNTER 2021-11-10 01:12 | Day surgery (SDC) | payer OTHER ==
[2022-02-21] MEDS ORDERED: EPIPEN0.3 MG/0.3 IM (13:44)
== END 2021-11-10 15:42 | disposition home or self-care (01) ==
LOC: ATC 01:12
DX: M46.36 Infection of intervertebral disc (pyogenic), lumbar region (principal); B95.61 Methicillin susceptible Staphylococcus aureus infection as the cause of diseases classified elsewhere
CPT/HCPCS: 96374; J0696

== ENCOUNTER 2021-11-11 02:44 | Day surgery (SDC) | payer OTHER ==
[2022-02-21] MEDS ORDERED: EPIPEN0.3 MG/0.3 IM (13:44)
== END 2021-11-11 15:15 | disposition home or self-care (01) ==
LOC: ATC 02:44
DX: M46.36 Infection of intervertebral disc (pyogenic), lumbar region (principal); B95.61 Methicillin susceptible Staphylococcus aureus infection as the cause of diseases classified elsewhere; I10 Essential (primary) hypertension; F17.210 Nicotine dependence, cigarettes, uncomplicated
CPT/HCPCS: 96374; J0696

== ENCOUNTER 2021-11-12 15:12 | Day surgery (SDC) | payer OTHER ==
[2022-02-21] MEDS ORDERED: EPIPEN0.3 MG/0.3 IM (13:44)
== END 2021-11-12 15:22 | disposition home or self-care (01) ==
LOC: ATC 15:12
DX: M46.36 Infection of intervertebral disc (pyogenic), lumbar region (principal); B95.61 Methicillin susceptible Staphylococcus aureus infection as the cause of diseases classified elsewhere
CPT/HCPCS: 96374; J0696

== ENCOUNTER 2021-11-13 00:58 | Day surgery (SDC) | payer OTHER | END 2021-11-13 10:55 | disposition home or self-care (01) | LOC: ATC 00:58 | DX: M46.36 Infection of intervertebral disc (pyogenic), lumbar region (principal); B95.61 Methicillin susceptible Staphylococcus aureus infection as the cause of diseases classified elsewhere | CPT/HCPCS: J0696 ==

== ENCOUNTER 2021-11-14 01:33 | Day surgery (SDC) | payer OTHER | END 2021-11-14 23:28 | disposition home or self-care (01) | LOC: WOUND 01:33 | DX: T81.42XA Infection following a procedure, deep incisional surgical site, initial encounter (principal); I10 Essential (primary) hypertension; I73.9 Peripheral vascular disease, unspecified; Y83.9 Surgical procedure, unspecified as the cause of abnormal reaction of the patient, or of later complication, without mention of misadventure at the time of the procedure | CPT/HCPCS: A9270 ==

== ENCOUNTER 2021-11-14 01:52 | Day surgery (SDC) | payer OTHER ==
[2021-11-14 16:02] LABS: BASOPHILS ABSOLUTE AUTO 0.06 K/mm3 (0.00-0.23); BASOPHILS PERCENT AUTO 1 % (0-2); EOSINOPHILS ABSOLUTE AUTO 0.29 K/mm3 (0.00-0.68); EOSINOPHILS PERCENT AUTO 3 % (0-6); Hematocrit 36.5 % (37.0-53.0); Hemoglobin 10.7 g/dL (13.5-17.5); IMMATURE GRAN ABSOLUTE AUTO 0.03 K/mm3 (0.00-0.10); IMMATURE GRAN PERCENT AUTO 0 % (0-1); LYMPHOCYTES PERCENT AUTO 28 % (21-46); MONOCYTES ABSOLUTE AUTO 0.91 K/mm3 (0.16-1.47); MONOCYTES PERCENT AUTO 11 % (4-13); Mean Corpuscular HGB 21.6 pg (26.0-34.0); Mean Corpuscular HGB Conc 29.3 g/dL (31.5-36.5); Mean Corpuscular Volume 74 fL (80-100); Mean Platelet Volume 10.4 fL (9.1-12.4); NEUTROPHILS ABSOLUTE AUTO 4.75 K/mm3 (1.96-9.15); NEUTROPHILS PERCENT AUTO 56 % (41-73); Platelet Count 346 K/mm3 (150-400); RDW Coefficient Variation 20.2 % (11.7-14.2); RDW Standard Deviation 52.9 fL (35.1-46.3); Red Blood Cell Count 4.96 M/mm3 (4.30-5.90); White Blood Cell Count 8.44 K/mm3 (4.00-11.30)
[2021-11-14 16:16] LABS: C-REACTIVE PROTEIN, EXT RANGE 0.503 mg/dL (0.000-0.300)
[2021-11-14 16:18] LABS: Alanine Aminotransfer (ALT/SGP 25 U/L (12-78); Albumin, Blood 3.8 g/dL (3.4-5.0); Alk Phos 71 U/L (50-136); Anion Gap 4 mmol/L (6-16); Aspartate Aminotrans (AST/SGOT 16 U/L (12-37); Bilirubin, Total 0.2 mg/dL (0.1-1.0); Blood Urea Nitrogen 16 mg/dL (8-24); Bun/Creatinine Ratio 23.5 (12.0-20.0); CO2, Blood 25 mmol/L (21-32); Calcium, Blood 8.9 mg/dL (8.5-10.1); Chloride, Blood 110 mmol/L (98-108); Creatinine, Blood 0.68 mg/dL (0.60-1.20); Globulin, Blood 3.9 g/dL (2.2-4.0); Glomerular Filtration Rate >60 (60-); Glucose, Blood 76 mg/dL (70-99); Potassium, Blood 4.3 mmol/L (3.5-5.5); Sodium, Blood 139 mmol/L (136-145); Total Protein, Blood 7.7 g/dL (6.4-8.2)
== END 2021-11-14 15:12 | disposition home or self-care (01) ==
LOC: ATC 01:52
PROVIDERS: Specialist
DX: M46.36 Infection of intervertebral disc (pyogenic), lumbar region (principal); B95.61 Methicillin susceptible Staphylococcus aureus infection as the cause of diseases classified elsewhere
CPT/HCPCS: 80053; 85025; 85651; 86140; J0696

== ENCOUNTER 2021-11-15 02:29 | Day surgery (SDC) | payer OTHER | END 2021-11-15 15:20 | disposition home or self-care (01) | LOC: ATC 02:29 | DX: M46.36 Infection of intervertebral disc (pyogenic), lumbar region (principal) | CPT/HCPCS: 96374; J0696 ==

== ENCOUNTER 2021-11-21 02:29 | Day surgery (SDC) | payer OTHER | END 2021-11-21 23:11 | disposition home or self-care (01) | LOC: WOUND 02:29 | DX: S31.000A Unspecified open wound of lower back and pelvis without penetration into retroperitoneum, initial encounter (principal); I10 Essential (primary) hypertension; T81.42XA Infection following a procedure, deep incisional surgical site, initial encounter; Z48.01 Encounter for change or removal of surgical wound dressing; L76.82 Other postprocedural complications of skin and subcutaneous tissue | CPT/HCPCS: A9270; G0463 ==

== ENCOUNTER 2021-11-23 00:59 | Observation (INO) | payer OTHER ==
[~2021-11-23] VITALS: Ht 167.6 cm; Wt 68.4 kg
[2021-11-23 02:50] LABS: Anion Gap 9 mmol/L (6-16); Blood Urea Nitrogen 17 mg/dL (8-24); Bun/Creatinine Ratio 26.2 (12.0-20.0); CO2, Blood 25 mmol/L (21-32); Calcium, Blood 9.3 mg/dL (8.5-10.1); Chloride, Blood 107 mmol/L (98-108); Creatinine, Blood 0.65 mg/dL (0.60-1.20); Glomerular Filtration Rate Unable to Calculate (60-); Glucose, Blood 140 mg/dL (70-99); Potassium, Blood 3.4 mmol/L (3.5-5.5); Sodium, Blood 141 mmol/L (136-145)
[2021-11-23 02:58] LABS: BASOPHILS PERCENT AUTO 1 % (0-2); EOSINOPHILS ABSOLUTE AUTO 0.27 K/mm3 (0.00-0.68); EOSINOPHILS PERCENT AUTO 2 % (0-6); Hemoglobin 10.8 g/dL (13.5-17.5); IMMATURE GRAN ABSOLUTE AUTO 0.03 K/mm3 (0.00-0.10); IMMATURE GRAN PERCENT AUTO 0 % (0-1); LYMPHOCYTES ABSOLUTE AUTO 3.16 K/mm3 (0.84-5.20); LYMPHOCYTES PERCENT AUTO 25 % (21-46); MONOCYTES ABSOLUTE AUTO 1.03 K/mm3 (0.16-1.47); MONOCYTES PERCENT AUTO 8 % (4-13); Mean Corpuscular HGB 21.6 pg (26.0-34.0); Mean Corpuscular Volume 72 fL (80-100); NEUTROPHILS ABSOLUTE AUTO 8.25 K/mm3 (1.96-9.15); NEUTROPHILS PERCENT AUTO 64 % (41-73); Platelet Count 315 K/mm3 (150-400); RDW Coefficient Variation 19.3 % (11.7-14.2); RDW Standard Deviation 49.9 fL (35.1-46.3); Red Blood Cell Count 4.99 M/mm3 (4.30-5.90); White Blood Cell Count 12.84 K/mm3 (4.00-11.30)
[2021-11-23 05:54] LABS: Influenza A, PCR NEGATIVE (NEGATIVE); Influenza B, PCR NEGATIVE (NEGATIVE); Resp Syncytial Virus, PCR NEGATIVE (NEGATIVE); SARS-Cov-2 (COVID-19) PCR, MMC NEGATIVE (NEGATIVE)
--- NOTE | 2021-11-23 11:58 | NUR ---
Patient is sitting up in bed and alert. Patient tells me about his medical history and the plan of care going forward. He shares his concerns about how he will recover from yet another surgery and about the potential for the infection being completely eradicated. 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 I provide therapeutic listening, gentle eligibility counselor and prayer. Patient responds well and shows signs of increased peace. I will continue to remain available to patient and family.
--- NOTE | 2021-11-23 17:01 | NUR ---
SHIFT SUMMARY: PATIENT ALERT AND ORIENTED X 4, ABLE TO VERBALIZE NEEDS, ON RA, NO TELE. HAS A WOUND TO LOWER BACK D/T PREVIOUS BACK SURGERY, DRESSSING DCI. PATIENT C/O LOWER BACK PAIN, MED MEDICATION PER EMAR AND EFFECTIVE.
--- NOTE | 2021-11-23 22:16 | NUR ---
Received patient alert and oriented, at bedside. Patient was asking to be discharged, stated that he does not want to keep up place. This nurse went to talk to patient and and advise to wait until we call doctor and see what can be done. Patient without informing anyone, left with . Patient did not comeback to the floor after around 1 hour. He is being discharge by the charge histotechnologist.
== END 2021-11-23 20:30 | disposition left against medical advice (07) ==
LOC: ER 00:59 → MEDS 01:00 → ER 06:14 → MEDS 06:14
PROVIDERS: Student in an Organized Health Care Education/Training Program; ADMIT Internal Medicine
DX: M46.26 Osteomyelitis of vertebra, lumbar region (principal); F10.11 Alcohol abuse, in remission; G89.29 Other chronic pain; K74.60 Unspecified cirrhosis of liver; F17.210 Nicotine dependence, cigarettes, uncomplicated; M54.41 Lumbago with sciatica, right side; Z86.19 Personal history of other infectious and parasitic diseases; Z86.14 Personal history of Methicillin resistant Staphylococcus aureus infection; Z53.29 Procedure and treatment not carried out because of patient's decision for other reasons; Z88.8 Allergy status to other drugs, medicaments and biological substances
CPT/HCPCS: 0241U; 51798; 72132; 72158; 80048; 84145; 85025; 85651; 86141; 96372; 96374; 96376; 99285-25; A9270; A9579; G0378; J1170; J1650; J7030; Q9967

== ENCOUNTER 2021-12-05 02:56 | Day surgery (SDC) | payer OTHER ==
[2022-02-21] MEDS ORDERED: EPIPEN0.3 MG/0.3 IM (13:44)
== END 2021-12-05 22:54 | disposition home or self-care (01) ==
LOC: WOUND 02:56
DX: T81.42XA Infection following a procedure, deep incisional surgical site, initial encounter (principal); S31.000A Unspecified open wound of lower back and pelvis without penetration into retroperitoneum, initial encounter; I10 Essential (primary) hypertension; I73.9 Peripheral vascular disease, unspecified; Y83.8 Other surgical procedures as the cause of abnormal reaction of the patient, or of later complication, without mention of misadventure at the time of the procedure
CPT/HCPCS: G0463

== ENCOUNTER 2021-12-12 01:48 | Day surgery (SDC) | payer OTHER | END 2021-12-12 22:44 | disposition home or self-care (01) | LOC: WOUND 01:48 | DX: S31.000A Unspecified open wound of lower back and pelvis without penetration into retroperitoneum, initial encounter (principal); T81.42XA Infection following a procedure, deep incisional surgical site, initial encounter; L76.82 Other postprocedural complications of skin and subcutaneous tissue; Z48.01 Encounter for change or removal of surgical wound dressing; I10 Essential (primary) hypertension; I87.2 Venous insufficiency (chronic) (peripheral) | CPT/HCPCS: A9270; G0463 ==

== ENCOUNTER → 2021-12-14 | Outpatient (CLI) | payer OTHER ==
[2021-12-14 09:21] LABS: Bilirubin, Urine Neg (Neg); Blood, Urine Neg (Neg); Glucose Qualitative, Urine Neg (Neg); Ketones, Urine Neg (Neg); Leukocyte Esterase, Urine Neg (Neg); Nitrite, Urine Neg (Neg); Protein, Urine Neg (Neg); Specific Gravity, Urine 1.015 (1.003-1.022); Urobilinogen, Urine NORM (Normal)
[2021-12-14 09:29] LABS: Appearance, Urine Clear (Clear); Color, Urine Yellow (P-Yellow)
== END | disposition home or self-care (01) ==
LOC: LAB SHORT 08:21
PROVIDERS: Nurse Practitioner Family
DX: E78.5 Hyperlipidemia, unspecified (principal); I10 Essential (primary) hypertension
CPT/HCPCS: 81003

== ENCOUNTER 2021-12-19 01:09 | Day surgery (SDC) | payer OTHER | END 2021-12-19 23:05 | disposition home or self-care (01) | LOC: WOUND 01:09 | DX: S31.000A Unspecified open wound of lower back and pelvis without penetration into retroperitoneum, initial encounter (principal); T81.42XA Infection following a procedure, deep incisional surgical site, initial encounter; I73.9 Peripheral vascular disease, unspecified; Z79.02 Long term (current) use of antithrombotics/antiplatelets; I10 Essential (primary) hypertension | CPT/HCPCS: G0463 ==

== ENCOUNTER 2021-12-26 01:28 | Day surgery (SDC) | payer OTHER | END 2021-12-26 22:50 | disposition home or self-care (01) | LOC: WOUND 01:28 | DX: S31.000A Unspecified open wound of lower back and pelvis without penetration into retroperitoneum, initial encounter (principal); T81.42XA Infection following a procedure, deep incisional surgical site, initial encounter; L76.82 Other postprocedural complications of skin and subcutaneous tissue; I10 Essential (primary) hypertension; I73.9 Peripheral vascular disease, unspecified; Z79.01 Long term (current) use of anticoagulants | CPT/HCPCS: G0463 ==

== ENCOUNTER 2022-02-16 09:55 | Day surgery (SDC) | payer OTHER ==
[~2022-02-16] VITALS: Ht 167.6 cm; Wt 72.0 kg
[2022-02-16] MEDS ORDERED: DULO30 PO (10:21)
[2022-02-16] MEDS ORDERED: CLON.2 PO (10:21)
[2022-02-16] MEDS ORDERED: ROPINIROLE HCL4 M1 PO (10:23)
--- NOTE | 2022-02-16 11:02 | NUR ---
PATIENT AWAITING PROCEDURE ADN C/O PAIN TO THE LEGS AND RIGHT HIP, TOOK HOME DOSE OF NORCO LAST NIGHT. OBTAINED ORDER FOR SINGLE DOSE TODAY/NOW FROM DR. ARREDONDO FOR NORCO 5/325 MG PO NOW X 1. GIVE TO THE PAITEN WITH ASMALL SIP OF WATER.
--- NOTE | 2022-02-16 15:02 | NUR ---
PT C/O PAIN BEHIND R KNEE AREA. DR MORTON AND NORPETER 5/325 GIVEN AT THIS TIME.
--- NOTE | 2022-02-16 15:04 | NUR ---
PATIENT IS WRITHING IN PAIN FROM THE RIGHT HIP, HE ATTEMPTED TURNING TO THE LEFT SIDE KEEPIGN THE RIGHT GROIN STRAIGHT BUT THAT DID NOT HELP. ORDER WAS OBTAINED FROM DR. ARREDONDO FOR AN ADDITIONAL [facility] ORDER. 5/325 MG HYDROCODONE/APAP 1 TAB PO GIVEN NOW FOR 8 PAIN. PATIENT REMAINS ON BEDREST FROM NOW. AT THE BEDSIDE.
--- NOTE | 2022-02-16 16:36 | NUR ---
PT UP AND WALKING AROUND. R GROIN SITE STABLE. DISCHARGE INSTRUCTIONS REVIEWED WITH PT. PT AND VERBALIZE UNDERSTANDING OF INSTRUCTIONS. SALINE LOCK REMOVED WITH CATHETER INTACT. PT DRESSED PER SELF. PT TO PRIVATE VEHICLE PER W/C WITH ONE STAFF.
[2022-02-17] MEDS ORDERED: META800 PO (10:22)
[2022-02-21] MEDS ORDERED: EPIPEN0.3 MG/0.3 IM (13:44)
== END 2022-02-16 23:33 | disposition home or self-care (01) ==
LOC: MHTC 09:55
DX: I70.213 Atherosclerosis of native arteries of extremities with intermittent claudication, bilateral legs (principal); I10 Essential (primary) hypertension; K21.9 Gastro-esophageal reflux disease without esophagitis; Z87.891 Personal history of nicotine dependence; Z88.8 Allergy status to other drugs, medicaments and biological substances; Z79.02 Long term (current) use of antithrombotics/antiplatelets; Z79.899 Other long term (current) drug therapy
CPT/HCPCS: 37220; 37228; 37232; 75625; 75716; 75774; 76937; 99152; 99153; A9270; C1725; C1760; C1769; C1887; C1894; J1644; J2250; J3010; J7030; J7040; Q9967

== ENCOUNTER 2022-02-17 09:47 | Emergency (ER) | payer OTHER ==
[~2022-02-17] VITALS: Ht 167.6 cm; Wt 72.6 kg
[~2022-02-17 09:47] MED LIST changes: +CLON.2 PO; +ROPINIROLE HCL4 M1 PO
[2022-02-17] MEDS ORDERED: META800 PO (10:22)
--- NOTE | 2022-02-17 10:52 | NUR ---
Patient is in ER waiting rm with spouse. Patient tells me about his medical issues and about his livng situation. I provide therapeutic listening and prayer. I will continue to remain available to patient and family.
[2022-02-17 11:07] LABS: BASOPHILS ABSOLUTE AUTO 0.07 K/mm3 (0.00-0.23); BASOPHILS PERCENT AUTO 1 % (0-2); EOSINOPHILS ABSOLUTE AUTO 0.27 K/mm3 (0.00-0.68); EOSINOPHILS PERCENT AUTO 3 % (0-6); Hematocrit 32.3 % (37.0-53.0); Hemoglobin 9.7 g/dL (13.5-17.5); IMMATURE GRAN ABSOLUTE AUTO 0.03 K/mm3 (0.00-0.10); IMMATURE GRAN PERCENT AUTO 0 % (0-1); LYMPHOCYTES PERCENT AUTO 21 % (21-46); MONOCYTES ABSOLUTE AUTO 0.91 K/mm3 (0.16-1.47); MONOCYTES PERCENT AUTO 9 % (4-13); Mean Corpuscular HGB 21.5 pg (26.0-34.0); Mean Corpuscular Volume 72 fL (80-100); Mean Platelet Volume 9.9 fL (9.1-12.4); NEUTROPHILS ABSOLUTE AUTO 6.69 K/mm3 (1.96-9.15); NEUTROPHILS PERCENT AUTO 66 % (41-73); Platelet Count 297 K/mm3 (150-400); RDW Coefficient Variation 17.2 % (11.7-14.2); RDW Standard Deviation 43.4 fL (35.1-46.3); Red Blood Cell Count 4.52 M/mm3 (4.30-5.90); White Blood Cell Count 10.07 K/mm3 (4.00-11.30)
[2022-02-17 11:39] LABS: Albumin, Blood 3.6 g/dL (3.4-5.0); Albumin/Globulin Ratio 0.9 (0.8-1.8); Bilirubin, Total 0.2 mg/dL (0.1-1.0); Bun/Creatinine Ratio 31.7 (12.0-20.0); Calcium, Blood 8.7 mg/dL (8.5-10.1); Creatinine, Blood 0.54 mg/dL (0.60-1.20); Globulin, Blood 3.8 g/dL (2.2-4.0); Potassium, Blood 3.9 mmol/L (3.5-5.5); Total Protein, Blood 7.4 g/dL (6.4-8.2)
== END 2022-02-17 13:38 | disposition home or self-care (01) ==
LOC: ER 09:47
PROVIDERS: Family Medicine
DX: I70.208 Unspecified atherosclerosis of native arteries of extremities, other extremity (principal); F17.210 Nicotine dependence, cigarettes, uncomplicated; Z95.828 Presence of other vascular implants and grafts; Z91.030 Bee allergy status; Z88.8 Allergy status to other drugs, medicaments and biological substances; Z91.038 Other insect allergy status; Z79.899 Other long term (current) drug therapy
CPT/HCPCS: 36415; 80053; 85025; 93926; J2270

== ENCOUNTER 2022-02-22 08:15 | Day surgery (SDC) | payer OTHER ==
[~2022-02-22] VITALS: Ht 167.6 cm; Wt 72.7 kg
[~2022-02-22 08:15] MED LIST changes: +META800 PO
--- NOTE | 2022-02-22 12:59 | NUR ---
DR ARREDONDO AT BEDSIDE W/ PATIENT AND PATIENT'S .
--- NOTE | 2022-02-22 13:45 | NUR ---
HOB RAISED TO 90 DEGREES, LEFT GROIN SITE SOFT NON TENDER WITH NO BLEEDING, OOZING, OR PAIN. RIGHT DP PULSE NOT PALPABLE NOR ABLE TO FIND WITH DOPPLER. RIGHT POST TIB WITH +2 PULSE. LEFT DORSAL PEDAL AND POST TIBIAL WITH +2 PULSES. WILL CONTINUE TO MONITOR.
--- NOTE | 2022-02-22 14:19 | NUR ---
PT VERBALIZED UNDERSTANDING OF D/C INSTRUCTIONS. PAPERWORK PROVIDED IN FOLDER. LEFT GROIN SITE SOFT NON TENDER WITH NO BLEEDING OR OOZING NOTED. NO HEMATOMA. PT REPORTS "FEELS MUCH BETTER" AFTER AMBULATING TO RESTROOM. PRESENT TO DRIVE PT HOME. ENCOURAGED TO FOLLOW UP SCHEDULED. IV REMOVED FROM RAC WITH CATH INTACT, PRESSURE DRESSING APPLIED. NO ACUTE DISTRESS NOTED.
== END 2022-02-22 14:30 | disposition home or self-care (01) ==
LOC: MHTC 08:15
DX: I70.213 Atherosclerosis of native arteries of extremities with intermittent claudication, bilateral legs (principal); K21.9 Gastro-esophageal reflux disease without esophagitis; I10 Essential (primary) hypertension; J44.9 Chronic obstructive pulmonary disease, unspecified; Z87.891 Personal history of nicotine dependence; Z88.8 Allergy status to other drugs, medicaments and biological substances; Z79.899 Other long term (current) drug therapy; Z91.030 Bee allergy status
CPT/HCPCS: 37226; 37228; 75716; 75774; 76937; 99152; 99153; C1725; C1769; C1874; C1887; C1894; J1644; J2250; J3010; J7030; J7040; Q9967

== ENCOUNTER 2022-03-19 20:20 | Emergency (ER) | payer OTHER ==
[~2022-03-19] VITALS: Ht 167.6 cm; Wt 72.6 kg
[2022-03-19] MEDS ORDERED: Robaxin750 MG PO (22:20)
== END 2022-03-19 22:28 | disposition home or self-care (01) ==
LOC: ER 20:20
DX: S76.212A Strain of adductor muscle, fascia and tendon of left thigh, initial encounter (principal); X58.XXXA Exposure to other specified factors, initial encounter; Y93.17 Activity, water skiing and wake boarding; M51.36 Other intervertebral disc degeneration, lumbar region; Z95.828 Presence of other vascular implants and grafts; Z87.891 Personal history of nicotine dependence
CPT/HCPCS: 36415; 72100; 73502; A9270; J1170; J2405

== ENCOUNTER 2022-07-06 15:29 | Emergency (ER) | payer OTHER ==
[~2022-07-06] VITALS: Ht 167.6 cm; Wt 72.6 kg
[~2022-07-06 15:29] MED LIST changes: +Robaxin750 MG PO
[2022-07-06 16:45] LABS: Influenza A, PCR NEGATIVE (NEGATIVE); Influenza B, PCR NEGATIVE (NEGATIVE); Resp Syncytial Virus, PCR NEGATIVE (NEGATIVE); SARS-Cov-2 (COVID-19) PCR, MMC NEGATIVE (NEGATIVE)
[2022-07-06 16:52] LABS: BASOPHILS ABSOLUTE AUTO 0.04 K/mm3 (0.00-0.23); BASOPHILS PERCENT AUTO 0 % (0-2); EOSINOPHILS ABSOLUTE AUTO 0.02 K/mm3 (0.00-0.68); EOSINOPHILS PERCENT AUTO 0 % (0-6); Hematocrit 33.5 % (37.0-53.0); Hemoglobin 9.9 g/dL (13.5-17.5); IMMATURE GRAN ABSOLUTE AUTO 0.04 K/mm3 (0.00-0.10); IMMATURE GRAN PERCENT AUTO 0 % (0-1); LYMPHOCYTES ABSOLUTE AUTO 0.63 K/mm3 (0.84-5.20); LYMPHOCYTES PERCENT AUTO 6 % (21-46); MONOCYTES ABSOLUTE AUTO 0.56 K/mm3 (0.16-1.47); MONOCYTES PERCENT AUTO 6 % (4-13); Mean Corpuscular HGB 20.4 pg (26.0-34.0); Mean Corpuscular HGB Conc 29.6 g/dL (31.5-36.5); Mean Corpuscular Volume 69 fL (80-100); Mean Platelet Volume 9.4 fL (9.1-12.4); NEUTROPHILS ABSOLUTE AUTO 8.96 K/mm3 (1.96-9.15); NEUTROPHILS PERCENT AUTO 87 % (41-73); Platelet Count 270 K/mm3 (150-400); RDW Coefficient Variation 18.7 % (11.7-14.2); RDW Standard Deviation 45.3 fL (35.1-46.3); Red Blood Cell Count 4.85 M/mm3 (4.30-5.90); White Blood Cell Count 10.25 K/mm3 (4.00-11.30)
[2022-07-06 17:30] LABS: Albumin, Blood 3.7 g/dL (3.4-5.0); Albumin/Globulin Ratio 0.9 (0.8-1.8); Bilirubin, Total 0.3 mg/dL (0.1-1.0); Bun/Creatinine Ratio 16.8 (12.0-20.0); Calcium, Blood 8.7 mg/dL (8.5-10.1); Creatinine, Blood 0.77 mg/dL (0.60-1.20); Globulin, Blood 4.1 g/dL (2.2-4.0); Potassium, Blood 3.7 mmol/L (3.5-5.5); Total Protein, Blood 7.8 g/dL (6.4-8.2)
[2022-07-07] MEDS ORDERED: Methocarbamol750 MG PO (09:27)
[2022-07-07] MEDS ORDERED: Cyclobenzaprine5 MG PO (09:28)
[2022-07-07] MEDS ORDERED: CYMBALTA30 M2 PO (09:30)
[2022-07-07] MEDS ORDERED: ROPINIROLE HCL2 MG PO (09:31)
== END 2022-07-06 19:08 | disposition left against medical advice (07) ==
LOC: ER 15:29
PROVIDERS: Physician Assistant
DX: R11.0 Nausea (principal); R50.9 Fever, unspecified; Z53.21 Procedure and treatment not carried out due to patient leaving prior to being seen by health care provider
CPT/HCPCS: 0241U; 36415; 71045; 80053; 85025; A9270; J2405

== ENCOUNTER 2022-07-07 08:50 | Emergency (ER) | payer OTHER ==
[~2022-07-07] VITALS: Ht 167.6 cm; Wt 72.6 kg
[2022-07-07] MEDS ORDERED: Methocarbamol750 MG PO (09:27)
[2022-07-07] MEDS ORDERED: Cyclobenzaprine5 MG PO (09:28)
[2022-07-07] MEDS ORDERED: CYMBALTA30 M2 PO (09:30)
[2022-07-07] MEDS ORDERED: ROPINIROLE HCL2 MG PO (09:31)
[2022-07-07 10:36] LABS: BASOPHILS ABSOLUTE AUTO 0.03 K/mm3 (0.00-0.23); BASOPHILS PERCENT AUTO 0 % (0-2); EOSINOPHILS PERCENT AUTO 0 % (0-6); Hematocrit 34.8 % (37.0-53.0); Hemoglobin 10.2 g/dL (13.5-17.5); IMMATURE GRAN ABSOLUTE AUTO 0.06 K/mm3 (0.00-0.10); IMMATURE GRAN PERCENT AUTO 1 % (0-1); LYMPHOCYTES ABSOLUTE AUTO 0.36 K/mm3 (0.84-5.20); LYMPHOCYTES PERCENT AUTO 3 % (21-46); MONOCYTES ABSOLUTE AUTO 0.33 K/mm3 (0.16-1.47); MONOCYTES PERCENT AUTO 3 % (4-13); Mean Corpuscular HGB 20.4 pg (26.0-34.0); Mean Corpuscular HGB Conc 29.3 g/dL (31.5-36.5); Mean Corpuscular Volume 70 fL (80-100); NEUTROPHILS ABSOLUTE AUTO 9.68 K/mm3 (1.96-9.15); NEUTROPHILS PERCENT AUTO 93 % (41-73); Platelet Count 215 K/mm3 (150-400); RDW Coefficient Variation 18.7 % (11.7-14.2); RDW Standard Deviation 46.1 fL (35.1-46.3); White Blood Cell Count 10.46 K/mm3 (4.00-11.30)
[2022-07-07 11:04] LABS: Albumin, Blood 3.3 g/dL (3.4-5.0); Albumin/Globulin Ratio 0.8 (0.8-1.8); Bilirubin, Total 0.4 mg/dL (0.1-1.0); Bun/Creatinine Ratio 16.3 (12.0-20.0); Creatinine, Blood 0.98 mg/dL (0.60-1.20); Potassium, Blood 3.5 mmol/L (3.5-5.5); Total Protein, Blood 7.3 g/dL (6.4-8.2)
[2022-07-07 12:30] LABS: Source, Urine Clean Catch
[2022-07-07 12:33] LABS: Appearance, Urine Clear (Clear); Bilirubin, Urine Neg (Neg); Blood, Urine 2+ (Neg); Color, Urine Yellow (P-Yellow); Glucose Qualitative, Urine Neg (Neg); Ketones, Urine Neg (Neg); Leukocyte Esterase, Urine Neg (Neg); Nitrite, Urine Neg (Neg); Protein, Urine 2+ (Neg); Urobilinogen, Urine NORM (Normal)
[2022-07-07 12:50] LABS: White Blood Cells, Urine 0-2 /hpf (0-5)
[2022-07-07 12:51] LABS: Bacteria Rare /hpf; Squamous Epithelial Cells Rare /hpf (Few)
== END 2022-07-07 12:57 | disposition home or self-care (01) ==
LOC: ER 08:50
PROVIDERS: Emergency Medicine
DX: M25.551 Pain in right hip (principal); M54.9 Dorsalgia, unspecified; G89.29 Other chronic pain; R50.9 Fever, unspecified; K62.5 Hemorrhage of anus and rectum; B34.9 Viral infection, unspecified; Z88.8 Allergy status to other drugs, medicaments and biological substances; Z91.038 Other insect allergy status; Z79.899 Other long term (current) drug therapy; Z87.891 Personal history of nicotine dependence
CPT/HCPCS: 36415; 74177; 80053; 81001; 85025; J1170; J7030; Q9967

== ENCOUNTER 2022-07-09 09:38 | Inpatient (IN) | payer OTHER ==
[~2022-07-09] VITALS: Ht 167.6 cm; Wt 75.9 kg
[~2022-07-09 09:38] MED LIST changes: +CYMBALTA30 M2 PO; +Cyclobenzaprine5 MG PO; +Methocarbamol750 MG PO; +ROPINIROLE HCL2 MG PO
[2022-07-09 11:04] LABS: Anion Gap 14 mmol/L (6-16); Blood Urea Nitrogen 39 mg/dL (8-24); Bun/Creatinine Ratio 25.5 (12.0-20.0); C-REACTIVE PROTEIN, EXT RANGE >19.000 mg/dL (0.000-0.300); CO2, Blood 17 mmol/L (21-32); Calcium, Blood 7.6 mg/dL (8.5-10.1); Chloride, Blood 93 mmol/L (98-108); Creatinine, Blood 1.53 mg/dL (0.60-1.20); Glomerular Filtration Rate 52 (60-); Glucose, Blood 98 mg/dL (70-99); Potassium, Blood 3.6 mmol/L (3.5-5.5); Sodium, Blood 124 mmol/L (136-145)
[2022-07-09 11:29] LABS: Hematocrit 27.5 % (37.0-53.0); Hemoglobin 8.5 g/dL (13.5-17.5); Mean Corpuscular HGB 20.9 pg (26.0-34.0); Mean Corpuscular HGB Conc 30.9 g/dL (31.5-36.5); Mean Corpuscular Volume 68 fL (80-100); NRBC ABSOLUTE 0.02 K/mm3 (0.00-0.02); NRBC Auto 0.2 /100 WBC (0.0-0.2); RDW Coefficient Variation 18.6 % (11.7-14.2); Red Blood Cell Count 4.06 M/mm3 (4.30-5.90)
[2022-07-09 11:38] LABS: Platelet Count 38 K/mm3 (150-400)
[2022-07-09 11:59] LABS: BAND PERCENT MAN 58 % (0-8); BASOPHILS PERCENT MAN 0 % (0-2); EOSINOPHILS PERCENT MAN 0 % (0-6); METAMYELOCYTE ABSOLUTE MAN 0.64 K/mm3 (0.00-0.00); METAMYELOCYTE PERCENT MAN 6 % (0-0); MONOCYTES PERCENT MAN 1 % (4-13); NEUTROPHILS ABSOLUTE MAN 10.04 K/mm3 (1.96-9.15); SEG NEUTROPHILS PERCENT MAN 35 % (41-73); TOTAL CELLS COUNTED 100
[2022-07-09 12:47] LABS: Influenza A, PCR NEGATIVE (NEGATIVE); Influenza B, PCR NEGATIVE (NEGATIVE); Resp Syncytial Virus, PCR NEGATIVE (NEGATIVE); SARS-Cov-2 (COVID-19) PCR, MMC NEGATIVE (NEGATIVE)
[2022-07-09 13:05] LABS: D-Dimer, Quantitative >35.20 mg/L FEU (0.00-0.52); Fibrinogen 316 mg/dL (170-430); International Normalized Ratio 1.62; Prothrombin Time Results 16.5 Sec (9.7-11.5)
[2022-07-09 14:59] LABS: Source, Urine Clean Catch
[2022-07-09 15:05] LABS: Appearance, Urine Hazy (Clear); Bilirubin, Urine Neg (Neg); Blood, Urine 3+ (Neg); Color, Urine Yellow (P-Yellow); Glucose Qualitative, Urine Neg (Neg); Ketones, Urine Neg (Neg); Leukocyte Esterase, Urine Neg (Neg); Nitrite, Urine Neg (Neg); Protein, Urine 2+ (Neg); Specific Gravity, Urine 1.015 (1.003-1.022); Urobilinogen, Urine NORM (Normal)
[2022-07-09 15:14] LABS: White Blood Cells, Urine 0-2 /hpf (0-5)
[2022-07-09 15:15] LABS: Amorphous Heavy (0-Heavy); Bacteria Many /hpf; Mucus Mod (0-Heavy); Squamous Epithelial Cells Rare /hpf (Few); Transitional Epithelial Cells Rare /hpf (0-Rare)
[2022-07-09 17:51] LABS: Creatinine, Blood 1.48 mg/dL (0.60-1.20); Potassium, Blood 3.8 mmol/L (3.5-5.5)
[2022-07-09 21:24] LABS: PCO2 Arterial 27.3 mmHg (35-45); PO2 Arterial 67.2 mmHg (80-100); pH Blood Arterial 7.37 (7.35-7.45)
[2022-07-10 00:52] LABS: PCO2 Arterial 24.3 mmHg (35-45); PO2 Arterial 122 mmHg (80-100); pH Blood Arterial 7.29 (7.35-7.45)
--- NOTE | 2022-07-10 01:20 | NUR ---
RECEIVED PATIENT FROM ED. PATIENT IS RESTLESS AND C/O 10/10 BLE PAIN (SPECIFICALLY BOTH FEET). HE IS NRB AT 15L WITH SPO2 >95%, TACHYCARDIC AND NORMOTENSIVE. HE A/OX4, BUT IS IN TOO MUCH DISTRESS TO COMPLETE FULL ADMISSION ASSESSMENT QUESTIONAIRE.
--- NOTE | 2022-07-10 02:01 | NUR ---
CALL TO DR DENIS FOR CONSULT TO DR GEORGE FOR CENTRAL LINE AND SEPSIS. DR GEORGE ON HIS WAY IN.
--- NOTE | 2022-07-10 02:30 | NUR ---
DR. GEORGE AT BEDSIDE TO INSERT CENTRAL LINE. PATIENT IS RESTING COMFORTABLY, RESPONDS TO VERBAL STIMULI AND COOPERATIVE.
[2022-07-10 02:31] LABS: PCO2 Arterial 31.8 mmHg (35-45); PO2 Arterial 87.8 mmHg (80-100)
[2022-07-10 02:32] LABS: pH Blood Arterial 7.28 (7.35-7.45)
--- NOTE | 2022-07-10 03:00 | NUR ---
PATIENT IS AGITATED, VIOLENT, MILDLY CONFUSED AND RIPPING OFF VITAL SIGN EQUIPMENT. ATTEMPTED TO REDIRECT AND CALM PATIENT, BUT UNSUCCESSFUL REQUIRING ASSISTANCE FROM OTHER STAFF TO KEEP PATIENT FROM JUMPING OUT OF BED AND PULLING OUT IV LINES. NEW ORDERS OBTAINED FOR ATIVAN AND INITIATE PRECEDEX GTT. ATIVAN ADMINISTERED APPROPRIATELY RESULTING IN PATIENT CALMING DOWN AND ABLE TO TRANSFER PATIENT FROM COMMODE WITH 2 PRESON ASSIST. INITIATED ZENAIDA AND SOFT RESTRAINTS
[2022-07-10 03:43] LABS: Hematocrit 24.3 % (37.0-53.0); Hemoglobin 7.5 g/dL (13.5-17.5); Mean Corpuscular HGB 20.9 pg (26.0-34.0); Mean Corpuscular HGB Conc 30.9 g/dL (31.5-36.5); Mean Corpuscular Volume 68 fL (80-100); NRBC ABSOLUTE 0.02 K/mm3 (0.00-0.02); NRBC Auto 0.3 /100 WBC (0.0-0.2); RDW Coefficient Variation 18.9 % (11.7-14.2); RDW Standard Deviation 46.3 fL (35.1-46.3); Red Blood Cell Count 3.59 M/mm3 (4.30-5.90); White Blood Cell Count 6.38 K/mm3 (4.00-11.30)
[2022-07-10 03:59] LABS: International Normalized Ratio 1.73; Prothrombin Time Results 17.5 Sec (9.7-11.5)
--- NOTE | 2022-07-10 04:00 | NUR ---
TEMP HORTON PLACED PER ORDER WITH 500ML CLOUDY YELLOW URINE RETURN. UA SPECIMEN SENT TO LAB. PATIENT RESTING COMFORTABLY WITH EYES CLOSED, 5L O2 VIA NC MAINTAINING SPO2 >95%. HEMODYNAMICALLY STABLE
[2022-07-10 04:05] LABS: Albumin, Blood 2.4 g/dL (3.4-5.0); Albumin/Globulin Ratio 0.8 (0.8-1.8); Bun/Creatinine Ratio 24.4 (12.0-20.0); Calcium, Blood 7.8 mg/dL (8.5-10.1); Creatinine, Blood 1.6 mg/dL (0.60-1.20); Globulin, Blood 3.1 g/dL (2.2-4.0); Magnesium, Blood 1.8 mg/dL (1.6-2.4); Potassium, Blood 3.3 mmol/L (3.5-5.5); Total Protein, Blood 5.5 g/dL (6.4-8.2)
[2022-07-10 04:06] LABS: Platelet Count 24 K/mm3 (150-400)
[2022-07-10 04:09] LABS: Source, Urine Foley catheter
[2022-07-10 04:42] LABS: U Amphetamine Screen Not Detected; U Barbituate Screen Not Detected; U Benzodiazapine Screen Not Detected; U Buprenorphine Screen Not Detected; U Cannabinoids Screen Not Detected; U Cocaine Screen Not Detected; U Methadone Screen Not Detected; U Methamphetamine Screen Not Detected; U Opiates Screen DETECTED; U Oxycodone Screen Not Detected; U Phencyclidine Screen Not Detected; U Propoxyphene Screen Not Detected
[2022-07-10 05:03] LABS: Appearance, Urine Hazy (Clear); Bilirubin, Urine Neg (Neg); Blood, Urine 5+ (Neg); Color, Urine Yellow (P-Yellow); Glucose Qualitative, Urine Neg (Neg); Ketones, Urine Neg (Neg); Leukocyte Esterase, Urine Neg (Neg); Nitrite, Urine Neg (Neg); Protein, Urine 2+ (Neg); Urobilinogen, Urine NORM (Normal)
[2022-07-10 05:06] LABS: Amorphous Heavy (0-Heavy); Bacteria Few /hpf; Red Blood Cells, Urine 0-2 /hpf (0-2); Squamous Epithelial Cells Rare /hpf (Few); White Blood Cells, Urine 0-2 /hpf (0-5)
[2022-07-10 06:16] LABS: BAND PERCENT MAN 36 % (0-8); BASOPHILS PERCENT MAN 0 % (0-2); EOSINOPHILS PERCENT MAN 0 % (0-6); LYMPHOCYTES ABSOLUTE MAN 0.06 K/mm3 (0.84-5.20); LYMPHOCYTES PERCENT MAN 1 % (21-46); METAMYELOCYTE ABSOLUTE MAN 0.06 K/mm3 (0.00-0.00); METAMYELOCYTE PERCENT MAN 1 % (0-0); MONOCYTES ABSOLUTE MAN 0.06 K/mm3 (0.16-1.47); MONOCYTES PERCENT MAN 1 % (4-13); NEUTROPHILS ABSOLUTE MAN 6.18 K/mm3 (1.96-9.15); SEG NEUTROPHILS PERCENT MAN 61 % (41-73); TOTAL CELLS COUNTED 100
--- NOTE | 2022-07-10 08:00 | NUR ---
PT OPENS EYES TO VERBAL STIMULI AND IS ORIENTED TO SELF. PT REPORTS 7/10 LOW BACK AND RIGHT LEG PAIN-MED WITH FENTANYL 50 MCG IVP X 1-SEE EMAR. PT ABLE TO FOLLOW SOME SIMPLE COMMANDS, AND BLANCO-GENERALLY WEAK. PRECEDEX DRIP @ 0.2 MCG/KG/MIN. TEMP 103.1-COOL BATH GIVEN, ICE PACKS PLACED, AND FAN ON. ECG SHOWS ST WITH RATE 120'S. MAP TRENDING 70-80'S. NO NOTED EDEMA. LUNGS DIMINISHED IN THE BASES. NO NOTED COUGH. SATS>90% ON 8 LITERS OXYMIZER. NPO-AT RISK FOR ASPIRATION. ABDOMEN IS DISTENDED AND FIRM WITH HYPOACTIVE BT'S X 4. HORTON TO BSD WITH ADEQUATE AMOUNT OF CLEAR, DARK, YELLOW URINE OUTPUT. PT SKIN IS PALE, ORAL MUCOSA IS VERY DRY, SCATTERED PETECHIAE NOTED-PLATELETS 24. RIJ QUAD LUMEN DRESSING WITH OLD BLOOD NOTED.
--- NOTE | 2022-07-10 08:30 | NUR ---
PT APPEARS VERY ANXIOUS-PT MOAINING AND CRYING OUT. PT PULLING ON WRIST RESTRAINTS AND SITTING UP IN MED. PT TACHYPNEIC AND USING ACCESSORY MUSCLES AND ABDOMEN TO BREATH. SATS DOWN TO 80'S. FIO2 TITRATED UP TO 12 LITERS OXYMIZER TO KEEP SATS>90%. PT MED WITH ATIVAN 2 MG IVP FOR AGITATION AND PRECEDEX DRIP TITRATED UP TO 0.4 MCG/KG/MIN.
--- NOTE | 2022-07-10 08:40 | NUR ---
PT LESS RESTLESS AND AGITATED. NO LONGER TACHYPNEIC OR USING ACCESSORY MUSCLES TO BREATH. SATS 95%-FIO2 TITRATED DOWN TO 10 LITERS.
--- NOTE | 2022-07-10 08:50 | NUR ---
IN TO SEE PT. FULL UPDATE GIVEN. ECHO ORDERED AND PLAN FOR MRI LATER TODAY.
--- NOTE | 2022-07-10 09:55 | NUR ---
PT TACHYPNEIC AND LABORING TO BREATH. USING ACCESSORY MUSCLES-RR 30'S. SATS 88% ON 10 LITERS OXYMIZER. PT TOES ARE WHITE AND COOL. TEMP 102.8-NEW ICE PACKS PLACED. DR GEORGE SUMMONED TO BEDSIDE. BIPAP 10/5 WITH FIO2 40%. STAT CHEM PROFILE AND CBC ORDERED. IF OXYGEN DEMANDS TRENDING UP-WILL CHECK STAT ABG.
--- NOTE | 2022-07-10 10:17 | NUR ---
PT TURNED TO LEFT SIDE FOR ECHO. STAT CHEM PROFILE, MG+, PHOS, AND CBC SENT. RIJ OOZING SMALL AMOUNT OF BLOOD.
[2022-07-10 10:54] LABS: Albumin, Blood 2.4 g/dL (3.4-5.0); Albumin/Globulin Ratio 0.8 (0.8-1.8); Bilirubin, Total 1.1 mg/dL (0.1-1.0); Bun/Creatinine Ratio 22.4 (12.0-20.0); Calcium, Blood 7.9 mg/dL (8.5-10.1); Creatinine, Blood 1.61 mg/dL (0.60-1.20); Globulin, Blood 3.1 g/dL (2.2-4.0); Magnesium, Blood 1.9 mg/dL (1.6-2.4); Potassium, Blood 3.9 mmol/L (3.5-5.5); Total Protein, Blood 5.5 g/dL (6.4-8.2)
[2022-07-10 11:06] LABS: Hematocrit 24.9 % (37.0-53.0); Hemoglobin 7.7 g/dL (13.5-17.5); Mean Corpuscular HGB 20.8 pg (26.0-34.0); Mean Corpuscular HGB Conc 30.9 g/dL (31.5-36.5); Mean Corpuscular Volume 67 fL (80-100); RDW Coefficient Variation 18.9 % (11.7-14.2); RDW Standard Deviation 45.7 fL (35.1-46.3); White Blood Cell Count 8.23 K/mm3 (4.00-11.30)
--- NOTE | 2022-07-10 11:30 | NUR ---
PT MOANING, AND CRYING OUT "OUCH!" MED WITH FENTANYL 50 MCG IVP X 1 FOR PAIN-SEE EMAR. PT RESTLESS, AGITATED, AND CONFUSED. PT PULLING ON RESTRAINTS AND REACHING FOR BIPAP MASK. PRECEDEX CONTINUES @ 0.4 MCG/KG/MIN-MED WITH ATIVAN 2 MG IVP X 1 . TEMP 101.4-TYLENOL SUPPOSITORY GIVEN. HR CONTINUES 120'S. SBP TRENDING 130'S. LUNGS DIMINISHED IN THE BASES. OCCASIONAL MOIST, NONPRODUCTIVE COUGH. BIPAP 10/5 WITH FIO2 40% RR 26-32. ORAL CARE DONE VIA REDIPORT. PT STILL NPO. HORTON CONTINUES WITH ADEQUATE URINE OUTPUT. RIJ CENTRAL LINE CONTINUES TO OOZE SMALL AMOUNT OF BLOOD. SKIN REMAINS PALE WITH SCATTERED PETECHIAE AND ECCHYMOSIS T/O. PT CRYSTAL IN FOR VISIT-UPDATE GIVEN.
--- NOTE | 2022-07-10 11:52 | NUR ---
DR. GEORGE AT BEDSIDE SPEAKING WITH PT SPOUSE. DR. FLORES AT BEDSIDE WELL. THIS RN SPOKE WITH THE NURSING GAS METER REPAIRER AT THE [facility]-THE PLAN IS FOR HER TO SPEAK WITH THE CNO TO SEE IF TRANSFER IS POSSIBLE TODAY. ALSO, STEFANO AT DR. ARREDONDO'S OFFICE CONTACTED DR. GEORGE WOULD LIKE TO SPEAK WITH HIM. DR. GEORGE LEFT A MESSAGE WITH DR. ARREDONDO'S OFFICE/STEFANO EARLIER THIS AM AND STILL NO RESPONSE FROM DR. ARREDONDO.
[2022-07-10 12:16] LABS: Platelet Count 22 K/mm3 (150-400)
[2022-07-10 12:25] LABS: BAND PERCENT MAN 52 % (0-8); BASOPHILS PERCENT MAN 0 % (0-2); EOSINOPHILS PERCENT MAN 0 % (0-6); LYMPHOCYTES ABSOLUTE MAN 0.24 K/mm3 (0.84-5.20); LYMPHOCYTES PERCENT MAN 3 % (21-46); MONOCYTES PERCENT MAN 0 % (4-13); MYELOCYTE ABSOLUTE MAN 0.08 K/mm3 (0.00-0.00); MYELOCYTE PERCENT MAN 1 % (0-0); SEG NEUTROPHILS PERCENT MAN 44 % (41-73); TOTAL CELLS COUNTED 100
--- NOTE | 2022-07-10 13:01 | NUR ---
Pt's spouse, Libby is sitting just outside ICU on a bench. I sit with her and learn about the events that led to pt's hospitalization, what their daily lives our like (work, living [place] and family dynamics). I walk with Libby back to pt's and she is quite tearful. I provide therapeutic listening and prayer. Libby voices appreciation for the time and prayer. She appears more at peace and is less tearful. I will continue to remain available.
[2022-07-10 13:24] LABS: PCO2 Arterial 37.7 mmHg (35-45); PO2 Arterial 80.9 mmHg (80-100); pH Blood Arterial 7.32 (7.35-7.45)
--- NOTE | 2022-07-10 14:00 | NUR ---
AFTER TIME OUT COMPLETED, PT MED WITH ATIVAN 2 MG IVP X 1, FENTANYL 50 MCG IVP X 1, PRECEDEX DRIP TITRATED UP TO 1.4 MCG/KG/MIN FOR ULTRASOUND GUIDED ASPIRATION OF SPINAL ABCESS. PT POSITIONED TO RIGHT SIDE AND HE TOLERATED THE PROCEDURE WELL. 3 CC TURBID/SANGINOUS FLUID ASPIRATED AND SENT TO LAB. AFTER PROCEDURE-PRECEDEX DECREASED TO 0.7 MCG/KG/MIN. RR 22-28 SATS>90% ON FIO2 40% FARZANA RN TO PHONE [facility] AND OTHER FACILITIES TO CHECK BED AVAILABLILITY.
--- NOTE | 2022-07-10 14:34 | NUR ---
Spiritual care follow up visit conducted. I visit with Libby again this afternoon while Dr. Benjamin draws fluid out of pt's abscess. Libby feels me in further on the complicated family unit, about the little things she noticed as the pt declined in his health over the last week and about her fears concerning placement where pt needs to go for the surgery that is most likely needed. I encourage self-care and provide a calming presence and therapeutic listening. Libby responds well and shows signs of being comforted. I will continue to remain available...
--- NOTE | 2022-07-10 15:10 | NUR ---
PT RESTLESS, AGITATED, AND PULLING ON RESTRAINTS. RR 28-40 SATS>90% ON FIO2 40% PRECEDEX DRIP TITRATED UP TO 1.4 MCG/KG/MIN.
--- NOTE | 2022-07-10 15:57 | NUR ---
PT RESTLESS AND AGITATED ON PRECEDEX @ 1.4 MCG/KG/MIN. PT PULLING ON RESTRAINTS AND REACHING FOR BIPAP MASK. MED WITH ATIVAN 2 MG IVP FOR AGITATION. TEMP 103.0 TYLENOL SUPPOSITORY GIVEN AND COOL BATH AND FAN FOR COOLING. LUNGS DIMINISHED THROUGH OUT AND COARSE AND WHEEZY TO THE RIGHT. RR 26-32. SATS>90% ON BIPAP 10/5-FIO2 40%. RIJ DRESSING CHANGED. SKIN PALE AND HOT WITH SCATTERED ECCHYMOSIS AND PETECHIAE. URINE OUTPUT ADEQUATE.
--- NOTE | 2022-07-10 16:30 | NUR ---
DR. GEORGE GIVEN FULL UPDATE. MD AWARE OF INCREASED WOB AND RESP DISTRESS. PLAN FOR RSI. FARZANA-DEPUTY CLERK OF COURT COMMUNICATING WITH [place] REGARDING COBRA TRANSFER.
--- NOTE | 2022-07-10 16:45 | NUR ---
DR. GEORGE AT BEDSIDE-PREP FOR RSI. PT MED WITH PROPOFOL 50 MG IVP X 1. THEN PROPOFOL DRIP INITIATED @ 25 MCG/KG/MIN @ 1649. INTUBATED WITH 8.0 ETT/26 @ GUMS. OGT INSERTED. BOTH ETT AND OGT PLACEMENT CONFIRMED BY CXR. VENT: PS 10, PEEP 5, FIO2 60% SATS>90%. STAT ABG DONE. PT SPOUSE CRYSTAL GIVEN UPDATE.
[2022-07-10 17:17] LABS: PO2 Arterial 48.87 mmHg (80-100); pH Blood Arterial 7.31 (7.35-7.45)
--- NOTE | 2022-07-10 17:55 | NUR ---
REPORT GIVEN TO ELIU BARR FOR REACH. PT TRANSPORTED TO [facility].
--- NOTE | 2022-07-10 18:15 | NUR ---
REPORT PHONED TO EBONY @ [facility]. PT TO BE TRANSFERED TO [facility] ROOM 4. BELONGINGS SENT HOME WITH PT RULA.
== END 2022-07-10 18:00 | disposition short-term general hospital (02) | DRG 862 ==
LOC: ER 09:38 → ICUW 22:52 → ERHOLD 22:52 → ICUW 07-10 00:55
PROVIDERS: Internal Medicine Critical Care Medicine; Nurse Practitioner Acute Care; Student in an Organized Health Care Education/Training Program; ADMIT Internal Medicine
PROC: 3E03329 Introduction of Other Anti-infective into Peripheral Vein, Percutaneous Approach (ICD-10-PCS; 2022-07-09)
PROC: 02HV33Z Insertion of Infusion Device into Superior Vena Cava, Percutaneous Approach (ICD-10-PCS; principal; 2022-07-10)
PROC: B548ZZA Ultrasonography of Superior Vena Cava, Guidance (ICD-10-PCS; 2022-07-10)
PROC: 009U3ZX Drainage of Spinal Canal, Percutaneous Approach, Diagnostic (ICD-10-PCS; 2022-07-10)
PROC: 5A1935Z Respiratory Ventilation, Less than 24 Consecutive Hours (ICD-10-PCS; 2022-07-10)
PROC: 0BH17EZ Insertion of Endotracheal Airway into Trachea, Via Natural or Artificial Opening (ICD-10-PCS; 2022-07-10)
PROC: 5A09357 Assistance with Respiratory Ventilation, Less than 24 Consecutive Hours, Continuous Positive Airway Pressure (ICD-10-PCS; 2022-07-10)
DX: T81.49XA Infection following a procedure, other surgical site, initial encounter (principal); A41.01 Sepsis due to Methicillin susceptible Staphylococcus aureus; G92.8 Other toxic encephalopathy; J96.01 Acute respiratory failure with hypoxia; R65.21 Severe sepsis with septic shock; N17.9 Acute kidney failure, unspecified; D68.9 Coagulation defect, unspecified; M46.26 Osteomyelitis of vertebra, lumbar region; E87.1 Hypo-osmolality and hyponatremia; D69.6 Thrombocytopenia, unspecified; R74.01 Elevation of levels of liver transaminase levels; B19.20 Unspecified viral hepatitis C without hepatic coma; K74.60 Unspecified cirrhosis of liver; I73.9 Peripheral vascular disease, unspecified; K21.9 Gastro-esophageal reflux disease without esophagitis; G40.909 Epilepsy, unspecified, not intractable, without status epilepticus; I10 Essential (primary) hypertension; D50.9 Iron deficiency anemia, unspecified; M54.9 Dorsalgia, unspecified; G89.29 Other chronic pain; M48.00 Spinal stenosis, site unspecified; Z20.822 Contact with and (suspected) exposure to COVID-19; Z88.8 Allergy status to other drugs, medicaments and biological substances; Z91.038 Other insect allergy status; Z79.899 Other long term (current) drug therapy; Z79.891 Long term (current) use of opiate analgesic; Z79.02 Long term (current) use of antithrombotics/antiplatelets; Z87.19 Personal history of other diseases of the digestive system; Z98.890 Other specified postprocedural states; Z95.820 Peripheral vascular angioplasty status with implants and grafts; Z87.891 Personal history of nicotine dependence; Z28.310 Unvaccinated for COVID-19; Z86.14 Personal history of Methicillin resistant Staphylococcus aureus infection; Z79.2 Long term (current) use of antibiotics
CPT/HCPCS: 0241U; 10030; 31500; 36415; 36556; 36600; 51702; 71045; 72146; 72148; 80048; 80053; 81001; 82330; 82803; 83605; 83735; 84100; 85025; 85379; 85384; 85610; 85651; 85730; 86140; 87040; 87070; 87075; 87077; 87086; 87147; 87186; 87205; 93306; 94002; 94660; A9270; C1751; J0610; J0692; J1170; J1790; J1885; J2060; J2250; J2543; J2704; J3010; J3370; J3411; J3480; J7030; J7050; J7070; J7120

== ENCOUNTER → 2022-09-19 | Outpatient (CLI) | payer OTHER ==
[2022-09-19 18:42] LABS: Hematocrit 35.7 % (37.0-53.0); Hemoglobin 11.3 g/dL (13.5-17.5); Mean Corpuscular HGB 27.2 pg (26.0-34.0); Mean Corpuscular HGB Conc 31.7 g/dL (31.5-36.5); Mean Corpuscular Volume 86 fL (80-100); Mean Platelet Volume 10.7 fL (9.1-12.4); Platelet Count 231 K/mm3 (150-400); RDW Standard Deviation 47.3 fL (35.1-46.3); Red Blood Cell Count 4.16 M/mm3 (4.30-5.90); White Blood Cell Count 6.06 K/mm3 (4.00-11.30)
[2022-09-19 19:23] LABS: Albumin, Blood 2.8 g/dL (3.4-5.0); Albumin/Globulin Ratio 0.5 (0.8-1.8); Bilirubin, Total 0.2 mg/dL (0.1-1.0); Bun/Creatinine Ratio 33.1 (12.0-20.0); C-REACTIVE PROTEIN, EXT RANGE 1.55 mg/dL (0.000-0.300); Calcium, Blood 9.3 mg/dL (8.5-10.1); Creatinine, Blood 0.66 mg/dL (0.60-1.20); Globulin, Blood 5.1 g/dL (2.2-4.0); Potassium, Blood 4.1 mmol/L (3.5-5.5); Total Protein, Blood 7.9 g/dL (6.4-8.2)
[2022-09-20 14:43] LABS: BASOPHILS ABSOLUTE AUTO 0.04 K/mm3 (0.00-0.23); BASOPHILS PERCENT AUTO 1 % (0-2); EOSINOPHILS ABSOLUTE AUTO 0.22 K/mm3 (0.00-0.68); EOSINOPHILS PERCENT AUTO 4 % (0-6); Hematocrit 36.4 % (37.0-53.0); Hemoglobin 11.4 g/dL (13.5-17.5); IMMATURE GRAN ABSOLUTE AUTO 0.02 K/mm3 (0.00-0.10); IMMATURE GRAN PERCENT AUTO 0 % (0-1); LYMPHOCYTES ABSOLUTE AUTO 1.47 K/mm3 (0.84-5.20); LYMPHOCYTES PERCENT AUTO 24 % (21-46); MONOCYTES ABSOLUTE AUTO 0.68 K/mm3 (0.16-1.47); MONOCYTES PERCENT AUTO 11 % (4-13); Mean Corpuscular HGB 27.3 pg (26.0-34.0); Mean Corpuscular HGB Conc 31.3 g/dL (31.5-36.5); Mean Corpuscular Volume 87 fL (80-100); Mean Platelet Volume 11.4 fL (9.1-12.4); NEUTROPHILS ABSOLUTE AUTO 3.68 K/mm3 (1.96-9.15); NEUTROPHILS PERCENT AUTO 60 % (41-73); Platelet Count 215 K/mm3 (150-400); RDW Coefficient Variation 15.1 % (11.7-14.2); RDW Standard Deviation 47.8 fL (35.1-46.3); Red Blood Cell Count 4.17 M/mm3 (4.30-5.90); White Blood Cell Count 6.11 K/mm3 (4.00-11.30)
== END ==
LOC: EDSTATUS 09:35 → LAB RH 13:40
PROVIDERS: Internal Medicine
DX: A41.02 Sepsis due to Methicillin resistant Staphylococcus aureus (principal)
CPT/HCPCS: 80053; 85025; 85027; 85651; 86140

== ENCOUNTER 2022-11-07 01:00 | Day surgery (SDC) | payer OTHER | END 2022-11-07 22:42 | disposition home or self-care (01) | LOC: WOUND 01:00 | DX: T87.54 Necrosis of amputation stump, left lower extremity (principal); I96 Gangrene, not elsewhere classified | CPT/HCPCS: A9270; G0463 ==

== ENCOUNTER 2022-11-14 02:01 | Day surgery (SDC) | payer OTHER | END 2022-11-14 22:44 | disposition home or self-care (01) | LOC: WOUND 02:01 | DX: T87.54 Necrosis of amputation stump, left lower extremity (principal); T87.53 Necrosis of amputation stump, right lower extremity; I70.203 Unspecified atherosclerosis of native arteries of extremities, bilateral legs; L97.512 Non-pressure chronic ulcer of other part of right foot with fat layer exposed; I96 Gangrene, not elsewhere classified | CPT/HCPCS: A9270 ==

== ENCOUNTER 2022-11-20 00:08 | Day surgery (SDC) | payer OTHER | END 2022-11-20 22:39 | disposition home or self-care (01) | LOC: WOUND 00:08 | DX: I70.203 Unspecified atherosclerosis of native arteries of extremities, bilateral legs (principal); Z89.421 Acquired absence of other right toe(s); Z89.422 Acquired absence of other left toe(s) ==

== ENCOUNTER 2022-12-01 02:21 | Day surgery (SDC) | payer OTHER | END 2022-12-01 22:45 | disposition home or self-care (01) | LOC: WOUND 02:21 | DX: T87.54 Necrosis of amputation stump, left lower extremity (principal); T87.53 Necrosis of amputation stump, right lower extremity; L97.515 Non-pressure chronic ulcer of other part of right foot with muscle involvement without evidence of necrosis; L97.528 Non-pressure chronic ulcer of other part of left foot with other specified severity; I70.203 Unspecified atherosclerosis of native arteries of extremities, bilateral legs | CPT/HCPCS: A9270 ==

== ENCOUNTER 2022-12-06 02:34 | Day surgery (SDC) | payer OTHER | END 2022-12-06 22:41 | disposition home or self-care (01) | LOC: WOUND 02:34 | DX: T87.53 Necrosis of amputation stump, right lower extremity (principal); T87.54 Necrosis of amputation stump, left lower extremity; I10 Essential (primary) hypertension; L97.515 Non-pressure chronic ulcer of other part of right foot with muscle involvement without evidence of necrosis; L97.528 Non-pressure chronic ulcer of other part of left foot with other specified severity; I70.203 Unspecified atherosclerosis of native arteries of extremities, bilateral legs | CPT/HCPCS: A9270 ==

== ENCOUNTER 2022-12-13 01:13 | Day surgery (SDC) | payer OTHER | END 2022-12-13 23:00 | disposition home or self-care (01) | LOC: WOUND 01:13 | DX: T87.54 Necrosis of amputation stump, left lower extremity (principal); T87.53 Necrosis of amputation stump, right lower extremity; L97.515 Non-pressure chronic ulcer of other part of right foot with muscle involvement without evidence of necrosis; L97.528 Non-pressure chronic ulcer of other part of left foot with other specified severity; I70.203 Unspecified atherosclerosis of native arteries of extremities, bilateral legs; Z89.421 Acquired absence of other right toe(s); Z89.422 Acquired absence of other left toe(s) | CPT/HCPCS: A9270; G0463 ==

== ENCOUNTER 2022-12-20 02:34 | Day surgery (SDC) | payer OTHER | END 2022-12-20 23:28 | disposition home or self-care (01) | LOC: WOUND 02:34 | DX: L97.515 Non-pressure chronic ulcer of other part of right foot with muscle involvement without evidence of necrosis (principal); L97.822 Non-pressure chronic ulcer of other part of left lower leg with fat layer exposed; I70.203 Unspecified atherosclerosis of native arteries of extremities, bilateral legs; Z89.421 Acquired absence of other right toe(s); Z89.422 Acquired absence of other left toe(s); I10 Essential (primary) hypertension | CPT/HCPCS: A9270; G0463 ==

== ENCOUNTER 2023-03-04 03:57 | Emergency (ER) | payer OTHER ==
[~2023-03-04] VITALS: Ht 162.6 cm; Wt 72.6 kg
[~2023-03-04 03:57] MED LIST changes: +Carvedilol12.5 MG PO; +Flomax0.4 MG PO; +PREG150 PO; +QUET100 PO
[2023-03-04 06:00] VITALS: BP 165/85
[2023-03-05] MEDS ORDERED: SULFAMETHOXAZO1 EAC1 PO (23:38)
[2023-03-05] MEDS ORDERED: Norco 5-325 Ta1 EACH PO (23:38)
[2023-03-05] MEDS ORDERED: CYMBALTA30 M2 (23:38)
[2023-03-05] MEDS ORDERED: PREG150 (23:38)
[2023-03-05] MEDS ORDERED: TAMSULOSIN HCL0.4 M1 PO (23:38)
== END 2023-03-04 06:34 | disposition home or self-care (01) ==
LOC: ER 03:57
DX: G89.29 Other chronic pain (principal); M54.50 Low back pain, unspecified; G40.909 Epilepsy, unspecified, not intractable, without status epilepticus; B19.20 Unspecified viral hepatitis C without hepatic coma; Z91.030 Bee allergy status; Z88.8 Allergy status to other drugs, medicaments and biological substances; Z87.891 Personal history of nicotine dependence
CPT/HCPCS: 96372; 99283-25; A9270; J1170; J1885

== ENCOUNTER 2023-03-05 23:27 | Emergency (ER) | payer OTHER ==
[~2023-03-05] VITALS: Ht 167.6 cm; Wt 72.6 kg
[2023-03-05] MEDS ORDERED: Norco 5-325 Ta1 EACH PO (23:38)
[2023-03-05] MEDS ORDERED: SULFAMETHOXAZO1 EAC1 PO (23:38)
[2023-03-05] MEDS ORDERED: TAMSULOSIN HCL0.4 M1 PO (23:38)
[2023-03-05] MEDS ORDERED: CYMBALTA30 M2 (23:38)
[2023-03-05] MEDS ORDERED: PREG150 (23:38)
[2023-03-06 00:02] LABS: Source, Urine Clean Catch
[2023-03-06 00:08] LABS: Bilirubin, Urine Neg (Neg); Blood, Urine 1+ (Neg); Glucose Qualitative, Urine Neg (Neg); Ketones, Urine Neg (Neg); Leukocyte Esterase, Urine Neg (Neg); Nitrite, Urine Neg (Neg); Protein, Urine Neg (Neg); Specific Gravity, Urine 1.015 (1.003-1.022); Urobilinogen, Urine NORM (Normal)
[2023-03-06 00:11] LABS: BASOPHILS ABSOLUTE AUTO 0.07 K/mm3 (0.00-0.23); BASOPHILS PERCENT AUTO 1 % (0-2); EOSINOPHILS ABSOLUTE AUTO 0.32 K/mm3 (0.00-0.68); EOSINOPHILS PERCENT AUTO 3 % (0-6); Hematocrit 40.2 % (37.0-53.0); Hemoglobin 13.1 g/dL (13.5-17.5); IMMATURE GRAN ABSOLUTE AUTO 0.04 K/mm3 (0.00-0.10); IMMATURE GRAN PERCENT AUTO 0 % (0-1); LYMPHOCYTES ABSOLUTE AUTO 3.06 K/mm3 (0.84-5.20); LYMPHOCYTES PERCENT AUTO 33 % (21-46); MONOCYTES ABSOLUTE AUTO 1.05 K/mm3 (0.16-1.47); MONOCYTES PERCENT AUTO 11 % (4-13); Mean Corpuscular HGB 26.5 pg (26.0-34.0); Mean Corpuscular HGB Conc 32.6 g/dL (31.5-36.5); Mean Corpuscular Volume 81 fL (80-100); Mean Platelet Volume 10.9 fL (9.1-12.4); NEUTROPHILS ABSOLUTE AUTO 4.82 K/mm3 (1.96-9.15); NEUTROPHILS PERCENT AUTO 52 % (41-73); Platelet Count 219 K/mm3 (150-400); RDW Coefficient Variation 22.9 % (11.7-14.2); Red Blood Cell Count 4.94 M/mm3 (4.30-5.90); White Blood Cell Count 9.36 K/mm3 (4.00-11.30)
[2023-03-06 00:21] LABS: Appearance, Urine Clear (Clear); Color, Urine Yellow (P-Yellow)
[2023-03-06 00:22] LABS: Bacteria Rare /hpf; Red Blood Cells, Urine 0-2 /hpf (0-2); Squamous Epithelial Cells Few /hpf (Few); White Blood Cells, Urine 0-2 /hpf (0-5)
[2023-03-06 00:36] LABS: Albumin, Blood 3.5 g/dL (3.4-5.0); Albumin/Globulin Ratio 0.8 (0.8-1.8); Bilirubin, Total 0.2 mg/dL (0.1-1.0); Calcium, Blood 8.3 mg/dL (8.5-10.1); Creatinine, Blood 0.77 mg/dL (0.60-1.20); Globulin, Blood 4.5 g/dL (2.2-4.0); Potassium, Blood 4.4 mmol/L (3.5-5.5)
[2023-03-06 04:00] VITALS: BP 115/69
== END 2023-03-06 04:41 | disposition home or self-care (01) ==
LOC: ER 23:27
PROVIDERS: Student in an Organized Health Care Education/Training Program
DX: M54.50 Low back pain, unspecified (principal); G89.29 Other chronic pain; G40.909 Epilepsy, unspecified, not intractable, without status epilepticus; Z91.030 Bee allergy status; Z88.8 Allergy status to other drugs, medicaments and biological substances; Z79.899 Other long term (current) drug therapy; Z87.891 Personal history of nicotine dependence
CPT/HCPCS: 36415; 80053; 81001; 85025; 96372; 99283-25; A9270; J1885